=== PATIENT | male | born 1970 | race Caucasian/White ===

== ENCOUNTER 2020-10-02 18:35 | Inpatient (IN) | payer MEDICAID, SELFPAY ==
[~2020-10-02] VITALS: Ht 182.9 cm; Wt 71.7 kg
--- NOTE | 2020-10-02 18:37 | NUR ---
Patient to bed 9 by EMS.
[2020-10-02 18:45] VITALS: BP 101/61
--- NOTE | 2020-10-02 18:50 | NUR ---
RT AT BEDSIDE
--- NOTE | 2020-10-02 19:00 | NUR ---
PT W/ PORTEX 8 TRACH (SECURED) PLACED ON CA 8L 30% AND APPEARS TO BE TOLERATING WELL W/ SPO2 98/99%. WILL CONTINUE TO MONITOR
--- NOTE | 2020-10-02 19:05 | NUR ---
RT AT BEDSIDE EVALUATING PATIENT.
--- NOTE | 2020-10-02 19:06 | NUR ---
REPORT GIVEN TO KYLE CLEVELAND, TRANSFER OF CARE AT THIS TIME.
--- NOTE | 2020-10-02 19:10 | NUR ---
PATIENT 50 Y/O MALE BIBA FROM [facility] [place] FOR ELEVATED WBC 23.8. PATIENT ON TRACH TO T-BAR. RT AT BEDSIDE AND PLACED HIM ON 8L @ 30%. PATIENT NOTED WITH YELLOW SECRETIONS IN T-BAR. PATIENT AXO X 4. ABLE TO SPEAK AND VERBALIZE NEEDS. PATIENT STATES HAS PNA AND IS RECIVING ANTIBIOTICS AT FACILITY. PATIENT NOTED WITH G TUBE IN PLACE. PATIENT STOMA DRY, SKIN INTACT, SMALL AMOUNT OF YELLOW DISCHARGE NOTED AROUND STOMA. PATIENT NOTED WITH EVEN AND UNLABORED RESPIRATIONS. LUNGS SOUNDS NOTED WITH CRACKLES AND RONCHI A/P BILATERAL BASES. PATIENT ON FLOW COORDINATOR, VSS. MEDHX: CHRONIC RESPIRATORY FAILURE, EPILEPSY, DEPRESSION, GERD WITH ESOPHAGITIS, DYSPHAGIA NKA
--- NOTE | 2020-10-02 19:10 | NUR ---
WILDER CASE AT BEDSIDE FOR MEDICAL EVALUATION.
[2020-10-02] MEDS ORDERED: NACL 0.9% 500 ML IV ONE (19:20)
--- NOTE | 2020-10-02 19:27 | NUR ---
LAB AT BEDSIDE.
--- NOTE | 2020-10-02 19:29 | NUR ---
XRAY AT BEDSIDE.
--- NOTE | 2020-10-02 19:43 | NUR ---
RT AT BEDSIDE COLLECTING ABG.
[2020-10-02 19:47] LABS: HEMATOCRIT 31.1 % (36-52); HEMOGLOBIN 10.2 g/dL (12.0-18.0); MEAN CORPUSCULAR HEMOGLOBIN 29 pg (27-31); MEAN CORPUSCULAR HGB CONC 33 g/dL (33-37); MEAN CORPUSCULAR VOLUME 89.2 fL (80-94); PLATELET COUNT (AUTO) 441 K/uL (140-450); RED BLOOD CELL COUNT(AUTO) 3.49 MIL/uL (4.20-6.10); RED CELL DISTRIBUTION WIDTH 13.6 % (11.6-13.7); WHITE BLOOD COUNT (AUTO) 20.6 K/uL (4.8-10.8)
[2020-10-02 19:48] LABS: APPEARANCE,URINE CLEAR (CLEAR); BILIRUBIN,URINE NEGATIVE (NEGATIVE); BLOOD, URINE NEGATIVE (NEGATIVE); COLOR,URINE YELLOW (YELLOW); LEUKOCYTE ESTERASE ,URINE NEGATIVE (NEGATIVE); NITRITE, URINE NEGATIVE (NEGATIVE); PH,URINE 8.5 (5.0-9.0); UGLUCOSE NEGATIVE (NEGATIVE)
[2020-10-02 20:02] LABS: PROTHROMBIN TIME 10.6 secs (10.8-13.4)
[2020-10-02 20:08] LABS: EOSINOPHILS % (MANUAL) 1 % (0-4); LYMPHOCYTES % (MANUAL) 9 % (20-46); METAMYELOCYTES % 1 % (0-0); MONOCYTES % (MANUAL) 4 % (5-12)
--- NOTE | 2020-10-02 20:15 | NUR ---
EKG PERFORMED AT BEDSIDE. EKG READS SINUS RHYTHM @ 96
[2020-10-02 20:18] LABS: CARBON DIOXIDE 33.7 mmol/L (21-32); POTASSIUM 3.7 mmol/L (3.5-5.1)
[2020-10-02] MEDS ORDERED: PRED50TA2 GT (20:18)
[2020-10-02] MEDS ORDERED: CEL250 GT (20:18)
[2020-10-02] MEDS ORDERED: ESCI10TA GT (20:18)
[2020-10-02] MEDS ORDERED: ZINC220C9 GT (20:18)
[2020-10-02] MEDS ORDERED: PANT40EC GT (20:18)
[2020-10-02] MEDS ORDERED: CLON1TAB GT (20:18)
[2020-10-02] MEDS ORDERED: ESLI600T GT (20:18)
[2020-10-02] MEDS ORDERED: [UNRECOGNIZED DRUG - CODE] GT (20:18)
[2020-10-02] MEDS ORDERED: ALBU2.5V IH (20:18)
[2020-10-02] MEDS ORDERED: [UNRECOGNIZED DRUG - CODE] GT (20:18)
[2020-10-02] MEDS ORDERED: DOCU-299 GT (20:18)
[2020-10-02] MEDS ORDERED: ASCO500T95 GT (20:18)
[2020-10-02] MEDS ORDERED: BRIV100T GT (20:18)
[2020-10-02 20:19] LABS: ALBUMIN 2.5 g/dL (3.4-5.0); CREATININE 0.6 mg/dL (0.6-1.3); TOTAL BILIRUBIN 0.2 mg/dL (0.0-1.0)
[2020-10-02] MEDS ORDERED: PIPERACILLIN/TAZOBACTAM 3.375 GM in DEXTROSE 5% 50 ML IV ONE (20:25)
[2020-10-02] MEDS ORDERED: PIPERACILLIN/TAZOBACTAM 3.375 GM VIAL IV ONE (20:41)
--- NOTE | 2020-10-02 21:10 | NUR ---
PATIENT RESPIRATIONS ARE EVEN AND UNLABORED, SKIN WARM AND DRY TO TOUCH. PATIENT ALERT AND RESPONSIVE AND ABLE TO MAKE NEEDS KNOWN. PATIENT DENIES PAIN AT THIS TIME. SHANONT REMAINS ON CARDIC MONITOR. VSS. PATIENT SECRETIONS SUCTIONED AND 30ML OF YELLOW, THICK SECRETIONS NOTED PATIENT. TOLERATED WELL.
--- NOTE | 2020-10-02 21:35 | NUR ---
PER LAB CISCO GEIGER INVALID. WILDER CASE MADE AWARE. NEW ORDER FOR NOVEL PCR, ORDER CARRIED OUT.
--- NOTE | 2020-10-02 22:01 | NUR ---
PER LUCIA, COVID IS NEGATIVE AND FLU IS NEGATIVE. RN MADE AWARE.
[2020-10-02] MEDS ORDERED: POTASSIUM CHLORIDE 10 MEQ TABER PO PRN (22:25)
[2020-10-02] MEDS ORDERED: DOCUSATE SODIUM 100 MG GELCAP PO PRN (22:25)
[2020-10-02] MEDS ORDERED: ZOLPIDEM 5 MG TAB PO PRN (22:25)
[2020-10-02] MEDS ORDERED: ALBUTEROL SULFATE/IPRATROPIU 3 ML SOL IH PRN (22:25)
[2020-10-02] MEDS ORDERED: ONDANSETRON 4 MG/2 ML VIAL IM/IVP PRN (22:25)
--- NOTE | 2020-10-02 22:48 | NUR ---
PT TOLERATING CA 8L 30% WELL. CA WATER 3/4 FULL WILL CONTINUE TO MONITOR
[2020-10-02] MEDS: NACL 0.9% 1,000 ML IV SCH (23:00)
[2020-10-02 23:10] LABS: CHOL/HDL RATIO 4.7 (1-4.5); FREE T4 (FREE THYROXINE) 1.21 ng/dL (0.76-1.46); MAGNESIUM 1.9 mg/dL (1.8-2.4); PHOSPHORUS 2.5 mg/dL (2.5-4.9); THYROID STIMULATING HORMONE 0.73 uIU/mL (0.34-3.74)
[2020-10-03] MEDS: ALBUTEROL SULFATE/IPRATROPIU 3 ML SOL IH SCH ×4 (01:00→20:10)
--- NOTE | 2020-10-03 01:13 | NUR ---
Sx MOD AMT THICK YELLOW/CREAMY SECR. Addendum: 10/03/20 at 0115 by [facility] PT REFUSED Tx (JOZEF COX) AT THIS TIME AND WOULD LIKE TO REST. WILL CONTINUE TO MONITOR
[2020-10-03] MEDS: PIPERACILLIN/TAZOBACTAM 3.375 GM in DEXTROSE 5% 50 ML IV SCH ×5 (02:12→23:00)
--- NOTE | 2020-10-03 03:12 | NUR ---
Patient appears to be resting comfortably in bed. Vital Signs within normal limits. Respirations even and unlabored. Patient remains on shelter monitor. Patient suctioned as tolerated. Secretions are thin and yellow in color. 10 ml of secretions suctioned from patient. Patient tolerated well.
[2020-10-03] MEDS ORDERED: PIPERACILLIN/TAZOBACTAM 3.375 GM VIAL IV ONE (03:17)
--- NOTE | 2020-10-03 03:58 | NUR ---
CA WATER 1/4 FULL, PLACED NEW WATER AT BEDSIDE WILL CONTINUWE TO MONITOR
--- NOTE | 2020-10-03 04:31 | NUR ---
G-TUBE STOMA CLEANED AND REDRESSED. STOMA IS PINK, MOIST, AND INTACT.
--- NOTE | 2020-10-03 04:34 | NUR ---
Sx THICK YELLOW/CREAMY SECR AND TRACH CARE COMPLETED. Addendum: 10/03/20 at 0436 by CHEIKH PT WAS REPOSITIONED IN BED W/ RN
--- NOTE | 2020-10-03 05:00 | NUR ---
Patient appears to be resting comfortably in bed. Vital Signs within normal limits. Respirations even and unlabored.
[2020-10-03 05:54] LABS: BASOPHILS % (AUTO) 0.2 % (0.0-2.0); EOSINOPHILS # (AUTO) 0.5 K/uL (0-0.4); EOSINOPHILS % (AUTO) 3.7 % (0.0-4.0); HEMATOCRIT 30.4 % (36-52); HEMOGLOBIN 9.8 g/dL (12.0-18.0); LYMPHOCYTES # (AUTO) 1.1 K/uL (2.0-11.5); LYMPHOCYTES % (AUTO) 8.6 % (20.5-51.1); MEAN CORPUSCULAR HEMOGLOBIN 29 pg (27-31); MEAN CORPUSCULAR HGB CONC 32 g/dL (33-37); MONOCYTES % (AUTO) 7.7 % (1.7-9.3); NEUTROPHILS # (AUTO) 10.3 K/uL (1.8-7.7); NEUTROPHILS % (AUTO) 79.8 % (42.2-75.2); PLATELET COUNT (AUTO) 417 K/uL (140-450); RED BLOOD CELL COUNT(AUTO) 3.38 MIL/uL (4.20-6.10); RED CELL DISTRIBUTION WIDTH 13.7 % (11.6-13.7); WHITE BLOOD COUNT (AUTO) 12.9 K/uL (4.8-10.8)
[2020-10-03 06:01] LABS: ANION GAP 10.1 (8-16); CARBON DIOXIDE 30.3 mmol/L (21-32); CREATININE 0.6 mg/dL (0.6-1.3); POTASSIUM 3.4 mmol/L (3.5-5.1)
--- NOTE | 2020-10-03 06:50 | NUR ---
RT AT BEDSIDE EVALUATING PATIENT.
--- NOTE | 2020-10-03 07:15 | NUR ---
REPORT GIVEN TO BETH CLEVELAND. PATIENT SUCTIONED AND TOELRATED WELL. PATIENT REMAINS A&O X 4. PATIENT REMAINS ON CARDIAC MONTIOR. VSS.
--- NOTE | 2020-10-03 07:16 | NUR ---
Received report from MEGHA Rico. Transfer of care at this time.
--- NOTE | 2020-10-03 07:56 | NUR ---
RECEIVED REPORT FROM ER. PATIENT PENDING TRANSFER TO UNIT. CC: INCREASED WBC; DX: PNA; HX: CHRONIC RESPIRATORY FAILURE, EPILEPSY, DEPRESSION, GERD, DYSPHAGIA; NKA ALLERGIES, FULL CODE. TRACH TO T COLLAR AT 8L/30%; IV SITE RW 22G, SKIN INTACT. LAST V/S: BP: 95/48; RR 28; PULSE 89; TEMP 98.5; SPO2 100%. WILL WAIT FOR PATIENT TO ARRIVE ON UNIT.
--- NOTE | 2020-10-03 07:59 | NUR ---
Gave report to MEGHA Rizvi. Transfer of care at this time.
[2020-10-03 08:11] VITALS: BP 95/48
--- NOTE | 2020-10-03 08:15 | NUR ---
Patient will be admitted to care of DR. SMITH. Admited to TELE. Will go to room 122B. Belongings list completed. Report to MEGHA WOODWARD.
--- NOTE | 2020-10-03 08:15 | NUR ---
PT TX TO TELE, NO EVENTS OR DESATS NOTED, RETURNED TO 6L;/28% COOL AEROSOL TRACH MASK.
[2020-10-03] MEDS: PANTOPRAZOLE 40 MG TABEC PO SCH (09:45)
[2020-10-03] MEDS: NACL 0.9% 1,000 ML IV SCH ×2 (11:06→22:59)
[2020-10-03 12:00] VITALS: BP 99/56
--- NOTE | 2020-10-03 12:30 | NUR ---
PATIENT HAS BEEN SCREENED AND CATEGORIZED HIGH NUTRITION RISK. PATIENT WILL BE SEEN WITHIN 1-2 DAYS OF ADMISSION. 10/03/20-10/04/20 [facility] REFERRAL FOR TUBE FEEDING RECEIVED. ERROL SHAH RD
--- NOTE | 2020-10-03 12:52 | NUR ---
ADMINISTERED PRESCRIBED MEDS PER MD ORDER. PATIENT TOLERATED WELL. MEDICATION EDUCATION REINFORCEMENT NEEDED. SAFETY MEASURES IN PLACE. WILL CONTINUE TO MONITOR.
--- NOTE | 2020-10-03 13:54 | NUR ---
LATE ENTRY -- ZOSYN COMPLETED AT 2150 AND NS INFUSION COMPLETED AT 2150 10/02/20.
--- NOTE | 2020-10-03 14:41 | NUR ---
10/03/20 RD INITIAL ASSESSMENT COMPLETED PLEASE REFER TO NUTRITION ASSESSMENT UNDER CARE ACTIVITY FOR ESTIMATED NUTRITIONAL NEEDS. 1. RECOMMEND TUBE FEEDING WITH VITAL AF 1.2 @ 65 ML/HR AND FREE WATER FLUSH OF 100 ML Q4H -THIS WILL PROVIDE 1560 ML OF VOLUME, 1872 KCAL AND 117 GM OF PROTEIN, MEETING 100% OF KCAL AND PROTEIN NEEDS 2. RD TO FOLLOW-UP 2-3 DAYS, HIGH RISK ERROL SHAH, RD
--- NOTE | 2020-10-03 14:58 | NUR ---
PATIENT ROUNDING PERFORMED. PATIENT IN BED WATCHING TV. NO SIGNS OF DISTRESS/DISCOMFORT NOTED. PATIENT DENIES PAIN. SAFETY MEASURES IN PLACE. WILL CONTINUE TO MONITOR.
[2020-10-03 16:00] VITALS: BP 95/72
--- NOTE | 2020-10-03 19:15 | NUR ---
RECEIVED BEDSIDE REPORT FROM DAY SHIFT NURSE FOR CONTINUITY OF CARE. PT IS AWAKE AND ALERT. NODDING HEAD APPROPRIATELY TO QUESTIONS. PT IS TRACH TO T BAR ON 6L O2 AT 28% fio2. ON TELE MONITORING. G TUBE IN PLACE WITH NO DIET ORDER OR FEEDING INFUSING. URINAL AT BEDSIDE WITHIN REACH. SKIN IS WARM, DRY, AND INTACT. IV IS IN THE RIGHT WRIST 22 GAUGE RUNNING NS AT 80 ML PER HOUR PER ORDER. PT IS STABLE AT THIS TIME. PLAN OF CARE DISCUSSED. PCR COVID PENDING. DROPLET PRECAUTIONS IN PLACE. FALL PRECAUTIONS IN PLACE.
--- NOTE | 2020-10-03 19:22 | NUR ---
BEDSIDE REPORT PROVIDED TO NIGHTSHIFT NURSE FOR CONTINUITY OF CARE
--- NOTE | 2020-10-03 19:39 | NUR ---
DR. SMITH RESPONDED TO DAY SHIFT NURSE ABOUT REPORTED POTASSIUM LEVEL 3.4. DR. SMITH ORDERED KDUR [address] SMITH THAT KDUR CANNOT BE CRUSHED REPORTED BY JULIANA (PHARMACIST) AT [facility]. ASKED IF HE WOULD LIKE TO PLACE ORDER FOR 40 MEQ ELIXIR VIA GT. DR. SMITH AGREED TO ORDER AND ASKED FOR IT TO BE PLACED A PRN DAILY ORDER FOR POTASSIUM BELOW 3.5. ALSO INFORMED HIM THAT THERE WAS NO DIET ORDER AND THE PT HAS G TUBE IN PLACE. TOLD HIM THAT THE RECOMMENDATION OF THE RUG INSPECTOR WAS VITAL AF 1.2 AT 65 ML/HR AND WATER FLUSHED [address] SMITH RESPONDED TO START THE FEEDING. WILL FOLLOW THROUGH WITH ORDERS SOON POSSIBLE.
[2020-10-03 20:00] VITALS: BP 117/65
[2020-10-03] MEDS: POTASSIUM CHLORIDE 20% 40 MEQ/15 ML UDC GT PRN (21:26)
--- NOTE | 2020-10-03 21:27 | NUR ---
POTASSIUM CHLORIDE 40 MEQ GIVEN VIA G TUBE FOR POTASSIUM LEVEL OF 3.4 ORDERED PRN. NO RESIDUAL IN G TUBE. FLUSHING WELL. PT'S BREATHING IS UNLABORED. NO DISTRESS NOTED AT THIS TIME. TRACH TO T BAR WITH 6L O2. WILL CONTINUE TO MONITOR.
--- NOTE | 2020-10-03 21:35 | NUR ---
CALLED MASTER FISHER, AZEB, TO ASK FOR VITAL AF 1.2 G TUBE FEEDING. SHE SAID SHE WILL BRING IT TO THE UNIT SHORTLY.
--- NOTE | 2020-10-03 22:04 | NUR ---
G TUBE FEEDING STARTED. VITAL AF 1.2 STARTED AT 30 ML/HR AND WILL INCREASE TO 65 ML/HR TOLERATING FEEDING. WATER FLUSHES 100 ML Q4H. G TUBE RESIDUAL WAS LESS THAN 5 ML. EDUCATION WAS PROVIDED AND PT VERBALIZED UNDERSTANDING. ORAL CARE PROVIDED AND ORAL SUCTIONING WELL. PT WAS SUCTIONED THROUGH TRACH WITH CREAMY WHITE SECRETIONS EXPELLED. PT TOLERATED IT WELL. NO RESPIRATORY DISTRESS NOTED.
[2020-10-04] VITALS: BP 114/67
--- NOTE | 2020-10-04 | NUR ---
PT WAS GIVEN SANDWICH REQUESTED AND JUICE. PT IS SITTING AT EDGE OF THE BED, EATING FOOD. NO RESPIRATORY DISTRESS NOTED. PT WAS ORIENTED TO THE ROOM, LIGHTS, AND TV CONTROLS. ALL QUESTIONS ANSWERED ABOUT CARE OF PT. PT IS BACK TO BED. BED ALARM ON. Addendum: 10/04/20 at 0029 by Stefani Mondragon RN WRONG PT. THIS NOTE WAS FOR A DIFFERENT PT.
--- NOTE | 2020-10-04 00:05 | NUR ---
PT WAS SUCTIONED THROUGH TRACH AND CREAMY, WHITE SECRETIONS WERE EXPELLED. SMALL IN AMOUNT. O2 SAT IS 100%. PT NODDED THAT HE WAS OKAY AT THIS TIME. CALL LIGHT WAS PLACED WITHIN REACH. PT IS WATCHING TV, CALMLY.
[2020-10-04] MEDS: ALBUTEROL SULFATE/IPRATROPIU 3 ML SOL IH SCH ×4 (01:05→19:42)
--- NOTE | 2020-10-04 02:03 | NUR ---
ROUNDED ON PT. PT IS SLEEPING IN SEMI FOWLERS POSITION. G TUBE FEEDING IS INFUSING. RESIDUAL IS LESS THAN 5 ML. FEEDING INCREASED TO 50 ML/HR. IV FLUIDS ARE INFUSING. CALL LIGHT WITHIN REACH. WILL CONTINUE TO MONITOR.
[2020-10-04 04:00] VITALS: BP 107/66
--- NOTE | 2020-10-04 05:00 | NUR ---
PT WAS SUCTIONED THROUGH TRACH AND ORALLY. CREAMY, WHITE SECRETIONS WERE EXPELLED. PT TOLERATED THIS WELL. O2 SAT IS 100%. NO RESPIRATORY DISTRESS NOTED. G TUBE FEEDING INFUSING ORDERED. G TUBE RESIDUAL IS LESS THAN 5 ML.
[2020-10-04] MEDS: PIPERACILLIN/TAZOBACTAM 3.375 GM in DEXTROSE 5% 50 ML IV SCH ×4 (05:31→23:03)
[2020-10-04 06:05] LABS: BASOPHILS % (AUTO) 0.2 % (0.0-2.0); EOSINOPHILS # (AUTO) 0.7 K/uL (0-0.4); EOSINOPHILS % (AUTO) 7.2 % (0.0-4.0); HEMATOCRIT 30.6 % (36-52); HEMOGLOBIN 9.8 g/dL (12.0-18.0); LYMPHOCYTES % (AUTO) 10.3 % (20.5-51.1); MEAN CORPUSCULAR HEMOGLOBIN 29 pg (27-31); MEAN CORPUSCULAR HGB CONC 32 g/dL (33-37); MEAN CORPUSCULAR VOLUME 90.1 fL (80-94); MONOCYTES % (AUTO) 10.1 % (1.7-9.3); NEUTROPHILS # (AUTO) 6.8 K/uL (1.8-7.7); NEUTROPHILS % (AUTO) 72.2 % (42.2-75.2); PLATELET COUNT (AUTO) 454 K/uL (140-450); RED BLOOD CELL COUNT(AUTO) 3.39 MIL/uL (4.20-6.10); RED CELL DISTRIBUTION WIDTH 13.6 % (11.6-13.7); WHITE BLOOD COUNT (AUTO) 9.5 K/uL (4.8-10.8)
--- NOTE | 2020-10-04 06:45 | NUR ---
PT PULLED OUT IV WHILE SLEEPING. NEW IV WAS INSERTED ON THE RIGHT HAND 24 GAUGE ON FIRST ATTEMPT. FLUSHING AND PATENT. PT TOLERATED PROCEDURE WELL.
[2020-10-04 07:06] LABS: ANION GAP 10.3 (8-16); CARBON DIOXIDE 28.5 mmol/L (21-32); CREATININE 0.6 mg/dL (0.6-1.3); POTASSIUM 3.8 mmol/L (3.5-5.1)
--- NOTE | 2020-10-04 07:25 | NUR ---
ENDORSED PT TO DAY SHIFT NURSE FOR CONTINUITY OF CARE. PT IS STABLE. PLAN OF CARE DISCUSSED.
--- NOTE | 2020-10-04 07:30 | NUR ---
RECEIVED BEDSIDE ENDORSEMENT FROM NIGHTSSDFT NURSE FOR CONTINUITY OF CARE.
[2020-10-04 08:00] VITALS: BP 115/78
[2020-10-04 08:07] LABS: T4 (THYROXINE) 6.9 ug/dL (4.5-12.0)
[2020-10-04] MEDS: PANTOPRAZOLE 40 MG TABEC PO SCH (08:52)
--- NOTE | 2020-10-04 09:03 | NUR ---
ADMINISTERED PRESCRIBED MEDS PER MD ORDER. PATIENT TOLERATED WELL. MEDICATION EDUCATION PROVIDED. PATIENT VERALIZED UNDERSTANDING. PATIENT DENIES PAIN/SOB. SHOWS NO SIGNS OF DISTRESS OR DISCOMFORT. TRACH CARE PROVIDED. SAFETY MEASURES IN PLACE. WILL CONTINUE TO MONITOR.
[2020-10-04] MEDS: NACL 0.9% 1,000 ML IV SCH ×2 (11:55→23:22)
[2020-10-04 12:00] VITALS: BP 114/68
--- NOTE | 2020-10-04 13:31 | NUR ---
ADMINISTERED PRESCRIBED MEDS PER MD ORDER. PATIENT TOLERATED WELL. MEDICATION EDUCATION PROVIDED. PATIENT VERBALIZED UNDERSTANDING. RT AT BEDSIDE PERFORMING TRACH/RESPIRATORY CARE. SAFETY MEASURES IN PLACE. WILL CONTINUE TO MONITOR.
[2020-10-04 16:00] VITALS: BP 124/76
--- NOTE | 2020-10-04 18:50 | NUR ---
TRACH CARE PROVIDED TO PATIENT. PATIENT DENIES PAIN. NO SIGNS OF DISTRESS OR DISCOMFORT. SAFETY MEASURES IN PLACE. WILL CONTINUE TO MONITOR.
--- NOTE | 2020-10-04 19:08 | NUR ---
BEDSIDE ENDORSEMENT PROVIDED TO NIGHTSHIFT NURSE FOR CONTINUITY OF CARE.
--- NOTE | 2020-10-04 19:10 | NUR ---
PATIENT ENDORSED BY DAY SHIFT FOR CONTINUITY OF CARE. POC DISCUSSED. PATIENT IN STABLE CONDITION. PATIENT ON DROPLET PRECAUTIONS PENDING PCR. PT DIAGNOSIS IS PNEUMONIA. PATIENT IS ALERT AND ORIENTED BUT DIFFICULTY TO TALK. PATIENT IS TRACH TO T BAR ON 6 L. SUCTIONED DUE TO INCREASED SECRETIONS. PATIENT ON TELE SHOWING SINUS TACH. PATIENT HAS A G TUBE RUNNING 65 ML/HR AND WATER FLUSHES OF 100ML/HR Q4 HRS. PATIENTS LAST BM WAS TODAY, 10/04/20. SKIN IS INTACT WITH A RIGHT HAND IV 22GAUGE RUNNING NS @ 80 ML/HR. ALL PRECAUTIONS IN PLACE. CALL LIGHT WITHIN REACH. WILL CONTINUE TO MONITOR.
--- NOTE | 2020-10-04 19:53 | NUR ---
RT AT BEDSIDE.
[2020-10-04 20:00] VITALS: BP 129/86
--- NOTE | 2020-10-04 20:38 | NUR ---
SUCTIONED PATIENT, PATIENT IS NOTED TO HAVE INTERMITTENT COUGHING WELL W/ A LOT OF SPUTUM COMING OUT OF HIS MOUTH, WHITISH THICK SPUTUM NOTED. KEPT COMFORTABLE, CALL LIGHT WITHIN REACH.
--- NOTE | 2020-10-04 21:35 | NUR ---
PT SUCTIONED, INCREASED SPUTUM AND COUGHING NOTED. PATIENT KEPT COMFORTABLE AND POSITIONED IN A HIGH FOWLERS POSITION TO PREVENT ASPIRATION DURING COUGHING. SUCTION CHAMBER CHANGED DUE TO INCREASED SECRETION PRODUCTION. GTUBE CHECKED FOR RESIDUAL. FEEDING TUBE AND VITAL AF CHANGED AND RESTARTED AT 65 ML/HR. PATIENT COMFORTABLE. ALL PRECAUTIONS ARE IN PLACE. CALL LIGHT WITHIN REACH. WILL CONTINUE TO MONITOR.
--- NOTE | 2020-10-04 22:21 | NUR ---
PATIENT SUCTIONED DUE TO INCREASED COUGHING AND SPUTUM PRODUCTION THAT IS WHITISH. PATIENT TOLERATED PROCEDURE AND SHOWS NO SIGNS OF ACUTE DISTRESS. PATIENT NODS HE IS COMFORTABLE AND WOULD LIKE TO REST NOW. TV TURNED OFF, LIGHTS DIMMED. CALL LIGHT WITHIN REACH. WILL CONTINUE TO MONITOR.
--- NOTE | 2020-10-04 22:34 | NUR ---
PATIENT SUCTIONED DUE TO INCREASED SPUTUM SECRETION PRODUCTION AND INCREASED COUGHING. PATIENT TOLERATED PROCEDURE AND NODDED THAT HIS NEEDS ARE MET. PATIENT IS COMFORTABLE AND NODDED HE DOESN'T NEED TO BE SUCTIONED AGAIN. ALL PRECAUTIONS ARE IN PLACE AND CALL LIGHT IS WITHIN REACH. WILL CONTINUE TO MONITOR.
[2020-10-04] MEDS: guaiFENesin DM 200/20 MG-10 ML 10 ML UDC PO PRN (23:03)
--- NOTE | 2020-10-04 23:07 | NUR ---
RT CALLED DUE TO THE INCREASED COUGH AND PRODUCTION.
--- NOTE | 2020-10-04 23:16 | NUR ---
PRN COUGH MEDICATION ADMINISTERED VIA GTUBE. PATIENT EDUCATION PROVIDED PATIENT NODDED UNDERSTANDING. PATIENT TOLERATED ADMINISTRATION. SCHEDULED ABX ADMINISTERED. SUCTION PROVIDED DUE TO INCREASE SECRETION. ALL PRECAUTIONS IN PLACE. CALL LIGHT WITHIN REACH. WILL CONTINUE TO MONITOR.
[2020-10-04] MEDS: ACETAMINOPHEN 325 MG TAB PO PRN (23:47)
[2020-10-05] VITALS: BP 128/66
[2020-10-05] MEDS: ALBUTEROL SULFATE/IPRATROPIU 3 ML SOL IH SCH ×3 (01:00→12:19)
--- NOTE | 2020-10-05 01:20 | NUR ---
PRN ANTIPYRETIC ADMINISTERED FOR 100.5 FEVER. EDUCATION PROVIDED, PATIENT NODDED HIS HEAD UNDERSTANDING. SAFETY MEASURES IN PLACE, WILL CONTINUE TO MONITOR.
--- NOTE | 2020-10-05 02:11 | NUR ---
DR. SMITH NOTIFIED OF PATIENTS ELEVATED HEART RATE AROUND [phone]. BP WNL. DR. SMITH ORDERED CONSULT WITH JACQUELIN ISRAEL. JAVA J2EE ARCHITECT WAS PAGED. WAITING FOR CALL BACK FOR NEW ORDERS. WILL CONTINUE TO MONITOR.
--- NOTE | 2020-10-05 02:14 | NUR ---
DR. JACQUELIN ISRAEL PAGED, AWAITING CALL BACK, PATIENT IS CALM, DENIES PAIN. NO DISTRESS NOTED, SUCTIONED W/ MINIMAL SECRETION, TEMP 99.7. WILL CONTINUE TO MONITOR, CALL LIGHT WITHIN REACH.
--- NOTE | 2020-10-05 03:34 | NUR ---
PATIENT HAD A BM AND CHANGED, PATIENT REPORTS ALL NEEDS MET. NO INDICATION FOR SUCTION AT THIS TIME. RESPIRATIONS EVEN, UNLABORED AND NO SIGNS OF ACUTE DISTRESS. PATIENTS HEART RATE 126. ALL PRECAUTIONS IN PLACE, BED IN LOWEST POSITION. CALL LIGHT WITH IN REACH. WILL CONTINUE TO MONITOR.
[2020-10-05 04:00] VITALS: BP 123/75
--- NOTE | 2020-10-05 05:30 | NUR ---
ROUNDED ON PATIENT. PATIENT IS RESTING COMFORTABLY IN BED, WATHCING TV. PATIENT NODS NO THAT HE DOES NOT NEED TO BE SUCTIONED, AND YES THAT HIS NEEDS ARE MET. PATIENT CHEST IS RISING AND FALLING EVEN AND UNLABORED SHOWING NO SIGNS OF ACUTE DISTRESS. PATIENT IN STABLE CONDITION. SAFETY MEASURES IN PLACE, CALL LIGHT WITHIN REACH. WILL CONTINUE TO MONITOR.
[2020-10-05 05:34] LABS: ANION GAP 13.2 (8-16); CARBON DIOXIDE 28.4 mmol/L (21-32); CREATININE 0.6 mg/dL (0.6-1.3); POTASSIUM 3.6 mmol/L (3.5-5.1)
[2020-10-05] MEDS: PIPERACILLIN/TAZOBACTAM 3.375 GM in DEXTROSE 5% 50 ML IV SCH ×4 (05:41→23:44)
--- NOTE | 2020-10-05 06:33 | NUR ---
PATIENTS RIGHT HAND IV CATHETER FELL OUT, CATHETER INTACT. NEW IV PLACE IN LEFT WRIST, 24 GAUGE. PATIENT TOLERATED PROCEDURE. PATIENT IN STABLE CONDITION. SAFETY MEASURES IN PLACE, CALL LIGHT WITHIN REACH. WILL CONTINUE TO MONITOR.
--- NOTE | 2020-10-05 06:34 | NUR ---
PATIENTS HR AT 110. PATIENT STABLE AND SHOWS NO SIGNS OF ACUTE DISTRESS. CALL LIGHT WITHIN REACH, WITH SAFETY MEASURES IN PLACE. WILL CONTINUE TO MONITOR.
[2020-10-05 06:35] LABS: HEMATOCRIT 34.1 % (36-52); HEMOGLOBIN 10.8 g/dL (12.0-18.0); MEAN CORPUSCULAR HEMOGLOBIN 29 pg (27-31); MEAN CORPUSCULAR HGB CONC 32 g/dL (33-37); MEAN CORPUSCULAR VOLUME 90.1 fL (80-94); PLATELET COUNT (AUTO) 516 K/uL (140-450); RED BLOOD CELL COUNT(AUTO) 3.79 MIL/uL (4.20-6.10); RED CELL DISTRIBUTION WIDTH 13.9 % (11.6-13.7); WHITE BLOOD COUNT (AUTO) 24.7 K/uL (4.8-10.8)
[2020-10-05 07:30] LABS: EOSINOPHILS % (MANUAL) 1 % (0-4); LYMPHOCYTES % (MANUAL) 4 % (20-46); MONOCYTES % (MANUAL) 3 % (5-12)
--- NOTE | 2020-10-05 07:36 | NUR ---
PATIENT STABLE, NO DISTRESS NO SOB, ALL NEEDS ATTENDED, KEPT COMFORTABLE, BEDSIDE ENDORSEMENT GIVEN TO AM SHIFT RN FOR CONTINUITY OF CARE.
--- NOTE | 2020-10-05 07:37 | NUR ---
RECEIVED PATIENT REPORT FROM MANAGER PACU NURSE FOR CONTINUITY OF CARE. PATIENT AOX4, ABLE TO MAKE NEEDS KNOWN. RESPIRATIONS EVEN AND UNLABORED. TRACH TO T BAR WITH 6 L OF O2 SATING AT 100%. NO S/S OF RESPIRATORY DISTRESS NOTED. SKIN IS WARM AND DRY. IV SITE ON LEFT WRIST 24 G. INTACT AND PATENT. HAS A G TUBE RUNNING 65 ML/HR WITH WATER FLUSHES OF 100ML/HR Q4 HRS. PLAN OF CARE DISCUSSED. SAFETY PRECAUTIONS IN PLACE. ALL PRECAUTIONS IN PLACE. CALL LIGHT WITHIN REACH. WILL CONTINUE TO MONITOR.
[2020-10-05 08:00] VITALS: BP 127/75
[2020-10-05] MEDS: PANTOPRAZOLE 40 MG TABEC PO SCH (08:48)
--- NOTE | 2020-10-05 08:50 | NUR ---
ALL SCHEDULED MEDICATIONS GIVEN. PT IS STABLE. NO DISTRESS NOTED. WILL CONTINUE TO MONITOR.
--- NOTE | 2020-10-05 09:00 | NUR ---
DR. HEARD AT PATIENT'S BEDSIDE.
--- NOTE | 2020-10-05 09:20 | NUR ---
PATIENT REQUESTED TO BE SUCTIONED. PT TOLERATED SUCTION. O2 SATURATION IS AT 100%. NO DISTRESS NOTED. WILL CONTINUE TO MONITOR.
[2020-10-05] MEDS: LEVOFLOXACIN 750 MG/D5W PREMIX 150 ML IV SCH (09:54)
--- NOTE | 2020-10-05 11:40 | NUR ---
PATIENT REQUESTED TO BE SUCTIONED. PT TOLERATED SUCTION. O2 SATURATION IS AT 100%. NO DISTRESS NOTED. WILL CONTINUE TO MONITOR.
[2020-10-05 12:00] VITALS: BP 143/72
--- NOTE | 2020-10-05 12:00 | NUR ---
DR. BATISTA AT PATIENT'S BEDSIDE.
--- NOTE | 2020-10-05 12:05 | NUR ---
DISCHARGE PLANNING Received call from Minna at [facility], updated on pt status, no dc today. States if pt has order to dc during the weekend to call her at ph [phone]. States to fax her updated pt info, fax [phone]. Informed dc associate financial planner. Pt having fever 100.5, HR 111-143. New order for bcx, sputum cx, ID consult, IV levaquin, cardio consult for HR. Today WBC 24.7, bands 20. PCR results are neg. Addendum: 10/05/20 at 1248 by Qi Alfredo CM DC LAY OUT CARPENTER: FAXED UPDATED CLINICALS TO [facility].
[2020-10-05] MEDS: NACL 0.9% 1,000 ML IV SCH ×2 (12:40→23:47)
--- NOTE | 2020-10-05 13:59 | NUR ---
Rapid response was called on patient due to excessive secretions, coughing, and distress. Patient is coughing up excessive secretions and is agitated due to coughing fits. Rn stated that he is trying to get some cough medicine. RT suggested something to suggest to MD to decrease the amount of secretions due to excessive coughing. Patient is upset due to airway irritation. Patient did not desat during rapid or afterward.
--- NOTE | 2020-10-05 14:00 | NUR ---
RAPID RESPONSE WAS CALLED. PATIENT HAD EXCESSIVE SECRETIONS AND SHOWING SIGNS OF SOB AND TACHYAPNEA. SUCTIONED THE SECRETION OUT TO CLEAR AIRWAY. O2 SATURATION AT 98%. PATIENT WAS SLOWLY CALMING DOWN. BREATHING PATTERN IS RETURNING BACK TO NORMAL RHYTHM. PT IS STABLE NOW. CANCELLED RAPID RESPONSE. WILL CONTINUE TO MONITOR.
[2020-10-05] MEDS: guaiFENesin DM 200/20 MG-10 ML 10 ML UDC PO PRN (14:27)
--- NOTE | 2020-10-05 14:41 | NUR ---
10/05/20 RD FOLLOW UP COMPLETED PLEASE REFER TO NUTRITION ASSESSMENT UNDER CARE ACTIVITY FOR ESTIMATED NUTRITIONAL NEEDS. 1. CONTINUED VITAL AF 1.2 @ 65 ML/HR AND FREE WATER FLUSH OF 100 ML Q4H -THIS WILL PROVIDE 1560 ML OF VOLUME, 1872 KCAL AND 117 GM OF PROTEIN, MEETING 100% OF KCAL AND PROTEIN NEEDS 2. RD TO FOLLOW-UP 2-3 DAYS, HIGH RISK ERROL SHAH, RD
--- NOTE | 2020-10-05 15:50 | NUR ---
PATIENT REQUESTED TO BE SUCTIONED. PT TOLERATED SUCTION. O2 SATURATION IS AT 100%. NO DISTRESS NOTED. WILL CONTINUE TO MONITOR.
[2020-10-05 16:00] VITALS: BP 133/70
[2020-10-05] MEDS: GLYCOPYRROLATE 1 MG TAB PO SCH (17:05)
--- NOTE | 2020-10-05 17:32 | NUR ---
NOTIFIED DR. SMITH AND DR. HEARD REGARDING PATIENT'S ELEVATED HEART RATE. MD ARE AWARE AND RECEIVED NEW ORDERS FROM DR. SMITH BUT NO ORDERS WERE RECEIVED FROM DR. HEARD. DR. HEARD STATED THAT THERE IS NOTHING TO DO AT THIS TIME. PATIENT'S BODY IS REACTING TO THE PNA.
[2020-10-05] MEDS: LEVALBUTEROL 1.25 MG/0.5 ML NEBU INH PRN (17:56)
--- NOTE | 2020-10-05 18:00 | NUR ---
REPLACED OLD FEEDING WITH NEW FEEDING. NO RESIDUALS WERE NOTED. PT TOLERATING FEEDING.
--- NOTE | 2020-10-05 18:10 | NUR ---
RT AT PATIENT'S BEDSIDE ADMINISTRATING BREATHING TREATMENT
--- NOTE | 2020-10-05 19:25 | NUR ---
ENDORSED TO SPOOLING SUPERVISOR NURSE FOR CONTINUITY OF CARE. PT IS STABLE.
--- NOTE | 2020-10-05 19:26 | NUR ---
RECEIVED BEDSIDE ENDORSEMENT FROM AM SHIFT RN. PATIENT IS AAOX3-4, ON TRACH TO T PIECE, 6 L 28%, ON G TUBE FEEDING VITAL AF 1.2 AT 65ML/HR. TOLERATED WELL W/ 0 RESIDUAL, HOB ELEVATED, DENIES PAIN, SAFETY MEASURES IN PLACE, PLAN OF CARE DISCUSSED, PER ENDORSED, MD IS AWARE OF ELEVATED HR, WILL CONTINUE TO MONITOR, CALL LIGHT WITHIN REACH.
[2020-10-05 20:00] VITALS: BP 112/64
--- NOTE | 2020-10-05 21:00 | NUR ---
PERINEAL CARE RENDERED, KEPT CLEAN, DRY AND COMFORTABLE, CALL LIGHT WITHIN REACH.
[2020-10-05] MEDS: ACETAMINOPHEN 325 MG TAB PO PRN (21:31)
[2020-10-06] VITALS: BP 110/59
--- NOTE | 2020-10-06 | NUR ---
ASLEEP, AROUSABLE TO VERBAL, V/S TAKEN, NO DISTRESS, CALL LIGHT WITHIN REACH.
--- NOTE | 2020-10-06 02:42 | NUR ---
RT SUCTIONED THE PATIENT.
[2020-10-06 04:00] VITALS: BP 113/66
--- NOTE | 2020-10-06 04:00 | NUR ---
ASLEEP, NOTED CHEST RISE, NO DISTRESS, CALL LIGHT WITHIN REACH.
[2020-10-06] MEDS: PIPERACILLIN/TAZOBACTAM 3.375 GM in DEXTROSE 5% 50 ML IV SCH ×3 (05:33→18:34)
[2020-10-06] MEDS: guaiFENesin DM 200/20 MG-10 ML 10 ML UDC PO PRN (05:34)
--- NOTE | 2020-10-06 06:15 | NUR ---
RT called by RN regarding patients trach. Trach noted to be out, apparently got wrapped up into tele cords, and was dislodged. Trach reinserted into patients stoma, patient was able to clear secretions, and ventilate through trach. RT Viet informed RN of dislodgement and reinsertion of trach. Patient appeared calmer and saturations were good on monitor.
[2020-10-06] MEDS: GLYCOPYRROLATE 1 MG TAB PO SCH ×2 (06:32→16:41)
[2020-10-06] MEDS: LEVALBUTEROL 1.25 MG/0.5 ML NEBU INH PRN ×2 (06:55→11:10)
[2020-10-06 07:17] LABS: EOSINOPHILS # (AUTO) 0.1 K/uL (0-0.4); EOSINOPHILS % (AUTO) 0.4 % (0.0-4.0); HEMATOCRIT 32.1 % (36-52); HEMOGLOBIN 10.2 g/dL (12.0-18.0); LYMPHOCYTES # (AUTO) 1.4 K/uL (2.0-11.5); MEAN CORPUSCULAR HEMOGLOBIN 28 pg (27-31); MEAN CORPUSCULAR HGB CONC 32 g/dL (33-37); MONOCYTES # (AUTO) 1.4 K/uL (0.8-1.0); MONOCYTES % (AUTO) 5.1 % (1.7-9.3); NEUTROPHILS # (AUTO) 25.6 K/uL (1.8-7.7); NEUTROPHILS % (AUTO) 89.5 % (42.2-75.2); PLATELET COUNT (AUTO) 515 K/uL (140-450); RED BLOOD CELL COUNT(AUTO) 3.61 MIL/uL (4.20-6.10); RED CELL DISTRIBUTION WIDTH 13.5 % (11.6-13.7)
[2020-10-06 07:20] LABS: ANION GAP 10.7 (8-16); CREATININE 0.6 mg/dL (0.6-1.3); POTASSIUM 3.7 mmol/L (3.5-5.1)
--- NOTE | 2020-10-06 07:32 | NUR ---
PATIENT IS STABLE, NO DISTRESS, ALL NEEDS ATTENDED, DENIES PAIN, CALL LIGHT WITHIN REACH. BEDSIDE ENDORSEMENT GIVEN TO AM SHIFT RN FOR CONTINUITY OF CARE.
--- NOTE | 2020-10-06 07:35 | NUR ---
PT RECEIVED FROM SEATING CAPTAIN RN. SPEECH THERAPIST AT BEDSIDE. PT HAS NO S/S OF DISTRESS AT THIS TIME. ALL SAFETY MEASURES ARE IN PLACE. PER SP, NPO FOR RISK OF ASPIRATION
--- NOTE | 2020-10-06 07:40 | NUR ---
PT WAS SEEN FOR DYSPHAGIA. PT WAS HAVING WET VOICE FOR TRIALS OF PUREE DIET. NO FURTHER TRIALS WAS DONE DUE TO RISK OF ASPIRATION. RECOMMENDATION NOTHING BY MOUTH
[2020-10-06 07:53] LABS: WHITE BLOOD COUNT (AUTO) 28.5 K/uL (4.8-10.8)
[2020-10-06 08:00] VITALS: BP 132/72
--- NOTE | 2020-10-06 08:32 | NUR ---
PT ASSESSED.PT IS NOT RESPONSIVE TO STIMULI. VS STABLE. NO S/S OF DISTRESS. PT WAS SUCTIONED.
--- NOTE | 2020-10-06 09:03 | NUR ---
PT REASSESSED.PT ABLE TO NOD. RT AT BEDSIDE.
[2020-10-06] MEDS: LEVOFLOXACIN 750 MG/D5W PREMIX 150 ML IV SCH (09:05)
[2020-10-06] MEDS: PANTOPRAZOLE 40 MG TABEC PO SCH (09:05)
[2020-10-06] MEDS: POTASSIUM CHLORIDE 20% 40 MEQ/15 ML UDC GT PRN (09:05)
--- NOTE | 2020-10-06 09:19 | NUR ---
MEDICATIONS VP STRATEGY PER MD ORDER. PT EDUCATED. UNABLE TO VERBALIZE UNDERSTANDING. PT TOLERATED WELL. NO S/S OF DISTRESS AT THIS TIME. CALL LIGHT IS WITHIN REACH. ALL SAFETY MEASURES ARE IN PLACE.
--- NOTE | 2020-10-06 09:21 | NUR ---
RESIDUALS 15 MLS
--- NOTE | 2020-10-06 09:35 | NUR ---
PT PULLED UP AND REPOSITIONED FOR COMFORT
--- NOTE | 2020-10-06 10:50 | NUR ---
PTS IV FLUIDS CHANGED PER MD ORDER.
--- NOTE | 2020-10-06 11:37 | NUR ---
ORAL CARE OFFERED TO PT. PT REFUSED.
--- NOTE | 2020-10-06 11:58 | NUR ---
PT SUCTIONED. MEDICATIONS ASSEMBLY LINE LEADER PER MD ORDER. PT EDUCATED. PT TOLERATED WELL. NO S/S OF DISTRESS AT THIS TIME. CALL LIGHT IS WITHIN REACH. ALL SAFETY MEASURES ARE IN PLACE.
[2020-10-06 12:00] VITALS: BP 119/61
--- NOTE | 2020-10-06 12:06 | NUR ---
ORAL RINSE PROVIDED Addendum: 10/06/20 at 1207 by Flor Addison RN RN PT TOLERATED WELL. PT SUCTIONED AND REPOSITIONED. 10 MLS FOR RESIDUALS
--- NOTE | 2020-10-06 14:00 | NUR ---
PT CLEANSED REPOSITIONED, SUCTIONED.
[2020-10-06] MEDS: NACL 0.9% 1,000 ML IV SCH (14:23)
[2020-10-06 16:00] VITALS: BP 108/66
--- NOTE | 2020-10-06 16:30 | NUR ---
MEDICATIONS NEW ACCOUNTS BANKING REPRESENTATIVE PER MD ORDER. PT EDUCATED. PT TOLERATED WELL. NO S/S OF DISTRESS AT THIS TIME. CALL LIGHT IS WITHIN REACH. ALL SAFETY MEASURES ARE IN PLACE.
--- NOTE | 2020-10-06 17:50 | NUR ---
PT CHANGED. HAD ONE LARGE BM. 3 PEOPLE ASSIST NECESSARY
--- NOTE | 2020-10-06 18:45 | NUR ---
PTS TUBE FEEDINGS WERE CHANGED.
--- NOTE | 2020-10-06 18:53 | NUR ---
PT RESTING IN BED SUCTIONED , ORAL RINSE PROVIDED.
--- NOTE | 2020-10-06 19:30 | NUR ---
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 PT STABLE .
[2020-10-06 20:00] VITALS: BP 111/55
--- NOTE | 2020-10-06 20:00 | NUR ---
RECEIVED BEDSIDE REPORT FROM DAY RN REGARDING THE PATIENT FOR CONTINUITY OF CARE. PATIENT A/A/OX4, SITTING UP IN BED WATCHING TV . PATIENT NOT ON ANY DISTRESS. NO COMPLAIN AT THIS TIME. ON TRACH TO T-BAR, FiO2 28%, SATING 94% TO 98%. PATIENT HAS A LOT OF SECRETIONS AND NEEDED TO BE SUCTION CONSTANTLY. PATIENT HAS A PRN ORDER FOR BREATHING TREATMENT. FALL PRECAUTION IMPLEMENTED. INSTRUCTED TO CALL FOR ASSISTANCE AT ALL TIMES. PATIENT VERBALIZED UNDERSTANDING WITH THE PLAN OF CARE.WILL CONTINUE MONITORING AND POC.CALL LIGHT WITHIN REACH.
--- NOTE | 2020-10-06 22:00 | NUR ---
SUCTIONED PATIENT CONSTANTLY, MOUTH CARE PROVIDED. CHANGED PATIENT LINENS AND JILLIAN CARE PROVIDED. PATIENT HAD DIARRHEA AND EPISODE OF INCONTINENCE.
[2020-10-06] MEDS ORDERED: Z-GUARD PASTE TP ONE (23:43)
[2020-10-07] VITALS: BP 117/62
--- NOTE | 2020-10-07 | NUR ---
PATIENT VITAL SIGN STABLE, AFEBRILE, SATING 99% ON TRACH TO T BAR WITH 28% FiO2 ON 6LO2. 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 WILL CONTINUE TO MONITOR.
[2020-10-07] MEDS: PIPERACILLIN/TAZOBACTAM 3.375 GM in DEXTROSE 5% 50 ML IV SCH ×4 (00:02→17:10)
--- NOTE | 2020-10-07 02:27 | NUR ---
PATIENT HAS 2 EPISODES OF SEIZURE AFTER SUCTIONED BY RESPIRATORY THERAPIST. BOTH SEIZURE LASTED 5 MINUTES. NOTED THAT PATIENT PASSING WITH EYES ROLLED UP AND NOTED BOTH UPPER ARM AND BOTH LOWER EXTREMITIES JERKING. PATIENT IS SR ON TELE ,HR-99. BP-147/80, HR-116, SATING 97% ON TRACH TO TBAR,6LO2, FiO2 28%. PAGED DR ARELLANO AND MADE AWARE. AWAITING FOR MD TO RESPOND.
[2020-10-07] MEDS: LEVALBUTEROL 1.25 MG/0.5 ML NEBU INH PRN ×4 (02:34→19:21)
[2020-10-07 04:00] VITALS: BP 124/67
--- NOTE | 2020-10-07 04:00 | NUR ---
VITAL SIGNS STABLE,AFEBRILE, SATING 94% ON TRACH TO TBAR, 6LO2, 28% FIO2. 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 SAFETY MEASURES IN PLACED.
[2020-10-07] MEDS: NACL 0.9% 1,000 ML IV SCH ×2 (05:09→15:50)
--- NOTE | 2020-10-07 06:15 | NUR ---
PATIENT STABLE. NO ACUTE EVENT THROUGHOUT THE NIGHT. NO SEIZURE ACTIVITY NOTED AFTER THE EPISODE EARLIER. PATIENT NOT IN ANY DISTRESS AT THIS TIME. NO COMPLAIN FROM THE PATIENT. ALL NEEDS ATTENDED. CALL LIGHT WITHIN REACH. WILL ENDORSE THE PATIENT TO THE ONCOMING RN FOR CONTINUITY OF CARE.
[2020-10-07] MEDS: GLYCOPYRROLATE 1 MG TAB PO SCH ×2 (06:56→16:18)
[2020-10-07 07:14] LABS: BASOPHILS % (AUTO) 0.1 % (0.0-2.0); EOSINOPHILS # (AUTO) 0.3 K/uL (0-0.4); EOSINOPHILS % (AUTO) 1.7 % (0.0-4.0); HEMATOCRIT 29.8 % (36-52); HEMOGLOBIN 9.3 g/dL (12.0-18.0); LYMPHOCYTES # (AUTO) 1.3 K/uL (2.0-11.5); LYMPHOCYTES % (AUTO) 7.7 % (20.5-51.1); MEAN CORPUSCULAR HEMOGLOBIN 28 pg (27-31); MEAN CORPUSCULAR HGB CONC 31 g/dL (33-37); MEAN CORPUSCULAR VOLUME 90.6 fL (80-94); MONOCYTES # (AUTO) 1.1 K/uL (0.8-1.0); MONOCYTES % (AUTO) 6.4 % (1.7-9.3); NEUTROPHILS # (AUTO) 14.7 K/uL (1.8-7.7); NEUTROPHILS % (AUTO) 84.1 % (42.2-75.2); PLATELET COUNT (AUTO) 512 K/uL (140-450); RED BLOOD CELL COUNT(AUTO) 3.29 MIL/uL (4.20-6.10); RED CELL DISTRIBUTION WIDTH 13.8 % (11.6-13.7); WHITE BLOOD COUNT (AUTO) 17.5 K/uL (4.8-10.8)
[2020-10-07 07:30] LABS: ANION GAP 10.6 (8-16); CARBON DIOXIDE 29.1 mmol/L (21-32); CREATININE 0.5 mg/dL (0.6-1.3); POTASSIUM 3.7 mmol/L (3.5-5.1)
--- NOTE | 2020-10-07 07:34 | NUR ---
ENDORSED PATIENT TO DAY RN FREDDIE REGARDING THE PATIENT FOR CONTINUITY OF CARE. PATIENT STABLE.SIGNING OFF.
[2020-10-07] MEDS ORDERED: LORazepam 2 MG/ML VIAL IM/IVP PRN (07:35)
--- NOTE | 2020-10-07 07:35 | NUR ---
RECEIVED REPORT FROM PAINTING DEPARTMENT SUPERVISOR RN FOR CONTINUITY OF CARE. PT HAS SEIZURE LIKE ACTIVITY AT 0715 LASTING 30 SECONDS. VITAL SIGNS POST SZ: 98.9, 130, 26, 136/82, 95% PT REMAINS ON TRACH TO TBAR WITH FIO2 28% AND 6L 02. DR. ARELLANO WAS NOTIFIED. POC DISCUSSED AND WILL CONTINUE WITH POC.
--- NOTE | 2020-10-07 07:52 | NUR ---
RECEIVED ON SUPPLEMENTAL OXYGEN AT 28%/6 LPM VIA COOL AEROSOL TO INLINE SUCTION CATHETER/TRACHEOSTOMY TUBE SATURATION 90% DEEP TRACHEAL SUCTION X 2 FOR LARGE SEMI THICK YELLOW SECRETIONS HHN PRN THERAPY GIVEN AT THIS TIME PATIENT PRESENTING WITH SEIZURE ACTIVITY X 1 DURING HHN THERAPY FREDDIE/RN MADE AWARE POST HHN THERAPY INCREASED FIO2 TO 30% TO KEEP SATURATION GREATER THAN 90%
[2020-10-07 08:00] VITALS: BP 137/74
--- NOTE | 2020-10-07 08:00 | NUR ---
RECEIVED ORDERS FROM DR. ARELLANO TO ORDER HOME SEIZURE MEDICATIONS HOWEVER WE DO NOT CARRY THEM CONTACTED PHARMACY AND ATTEMPTED TO CONTACT FACILITY HOWEVER NOT ANSWER PHONE CALLS AT THIS TIME. WILL CONTINUE TO TRY TO GET HOME MEDS DELIVERED IF POSSIBLE.
[2020-10-07] MEDS: LORazepam 2 MG/ML VIAL IM/IVP PRN ×3 (08:28→09:00)
--- NOTE | 2020-10-07 08:28 | NUR ---
PT HAS ANOTHER SEIZURE LIKE ACTIVITY OBSERVED BY CONTRACTION OF UPPER EXTREMITIES. AND EYES ROLLING UP. 98.9, 134, 26, 132/82, 95% POST SEIZURE. PT WAS GIVEN 1 MG OF ATIVAN PER MD ORDERS. Addendum: 10/07/20 at 0854 by Priscila Gaitan RN UPON ASSESSMENT LEFT WRIST IV INFILTRATION STARTED NEW IV TO RIGHT WRIST 24 G ON FIRST ATTEMPT.
[2020-10-07] MEDS: clonazePAM 0.5 MG TAB GT SCH ×3 (08:29→16:57)
[2020-10-07] MEDS: LEVOFLOXACIN 750 MG/D5W PREMIX 150 ML IV SCH (08:30)
[2020-10-07] MEDS: LACTOBACILLUS RHAMNOSUS GG 1 EACH CAP PO SCH (08:30)
--- NOTE | 2020-10-07 08:36 | NUR ---
SCHEDULED MEDICATION GIVEN HAS 30ML OF RESIDUAL TO GT. OBSERVED ANOTHER EPISODE OF SEIZURE LIKE ACTIVITY LASTING APPROX 40 SEC. 2ND DOSE OF ATIVAN 1 MG WAS GIVEN. POST SEIZURE VS 99.1, 125, 26, 139/89, 97% ON TRACH TO TBAR 6 L. LUNG SOUNDS RHONCI. ABS I SOFT AND NONTENDER WITH ACTIVE BS X 4.
[2020-10-07] MEDS: LANSOPRAZOLE 30 MG CAPDR GT SCH (09:13)
[2020-10-07] MEDS ORDERED: levETIRAcetam 1,000 MG in NACL 0.9% 100 ML IV SCH (09:45)
[2020-10-07] MEDS ORDERED: NACL 0.9% 500 ML IV SCH (09:50)
--- NOTE | 2020-10-07 09:51 | NUR ---
NOTIFIED DR. ARELLANO OF HR 160 WITH GOING DOWN TO 130-[address] ARELLANO ORDER CHEST XRAY TO START KEPPRA IV AND NS 500ML BOLUS X 1
--- NOTE | 2020-10-07 09:57 | NUR ---
CAD CAM PROGRAMMER CALLED TO BEDSIDE DR. LD MCKENZIE REVIEWED PATIENT PULMONARY AND CARDIAC STATUS VORBO: PLACE ON VENTILATOR MODE AC RATE 12 FIO2 GREATER THAN 90% PEEP 5; NO ABG REQUIRED
[2020-10-07] MEDS ORDERED: LORazepam 2 MG/ML VIAL IVP SCH (10:08)
--- NOTE | 2020-10-07 10:15 | NUR ---
PATIENT WITH PORTEX CUFFLESS TRACHEOSTOMY TUBE; TUBE SEEMS VIABLE TO STOMA ATTEMPT TO PLACE ON VENTILATOR WITH MODE OF EITHER VC OR PC TO ASSESS FOR VOLUME LEAKAGE JILLIAN-STOMA; EXPIRATORY Vt LOW 200ml UNABLE TO MAINTAIN EXPIRATORY Vt OF 6ml/kg (470ml) PER IBW DUE TO EXCESSIVE VOLUME LEAK AT JILLIAN-STOMA MIX HOUSE OPERATOR TO CONTACT DR. LD WATKINS FOR ORDER TO CHANGE TO A CUFFED TRACHEOSTOMY TUBE
--- NOTE | 2020-10-07 10:17 | NUR ---
TEXTED PLUS LEFT VOICEMAIL TO DR. LD WATKINS VIA MST/RN PHONE FOR ORDERS TO CHANGE TRACHEOSTOMY TUBE TO CUFFED
--- NOTE | 2020-10-07 10:23 | NUR ---
TEXT REPLY FROM DR. LD WATKINS "OK" TO CHANGE TO CUFFED TRACHEOSTOMY TUBE
--- NOTE | 2020-10-07 10:24 | NUR ---
CALLED ER [phone] SPOKE TO Eddi GRAVES/RN IN RE TO ERMD TO CHANGE TRACHEOSTOMY TUBE; RN STATED THAT DR. SORIANO WILL ATTEND PATIENT BEDSIDE TO ASSESS AND POSSIBLY CHANGE TRACHEOSTOMY TUBE
--- NOTE | 2020-10-07 10:40 | NUR ---
DR. SORIANO AT BEDSIDE REVIEWED NEED FOR TRACHEOSTOMY TUBE CHANGE; ERMD ASSESSED; TRACHEOSTOMY TUBE CHANGED WITH A PORTEX DCT #8 CUFFED WITHOUT ADVERSE REACTIONS NOTED; PRE AND POST OXYGEN AND TRACHEAL SUCTION ADMINISTERED
--- NOTE | 2020-10-07 10:44 | NUR ---
PLACED ON A [employer]APE VENTILATOR PLUGGED INTO RED OUTLET TOLERATING WELL TO A PORTEX DCT #8 AIRWAY CUFF PRESSURE CHECKED NOTED AMBU BAG AT BEDSIDE
--- NOTE | 2020-10-07 10:48 | NUR ---
VENTILATOR CHANGES: INCREASED Vt TO 450ml TO MAINTAIN EXPIRATORY Vt OF 6ml/kg (470ml) PER IBW; INCREASED RATE TO 18 BPM TO DECREASE WOB WELL DIGGER TO MONITOR AND ADJUST NEEDED
--- NOTE | 2020-10-07 11:00 | NUR ---
PT NOW ON MECHANICAL VENTILATION WITH FIO2 45%. SPO2 96% RESP 18. PT CONTINUES TO RECEIVE GT FEEDING TOLERATING WELL. PT WAS GIVEN ATIVAN [address] WATKINS ORDER AT 1010 NO SEIZURE LIKE ACTIVITY AT THIS TIME.
[2020-10-07 12:00] VITALS: BP 135/71
--- NOTE | 2020-10-07 12:40 | NUR ---
SCHEDULED MEDICATION GIVEN TOLERATED WELL. FAMILY NOTIFIED OF PATIENT CHANGE IN CONDITION WITH BEING PLACED ON MECHANICAL VENTILATION. PT RESTING IN BED WITH EYES CLOSED SPO2 97%
--- NOTE | 2020-10-07 14:13 | NUR ---
RESTING COMFORTABLY GOOD CHEST RISE EXPIRATORY Vt AT 450ml INCREASED Vt TO 475ml TO MAINTAIN EXPIRATORY Vt OF 6ml/kg (470ml) OR GREATER SATURATION 98% ON FIO2 OF 45% PEEP 5cmH2O POST HHN THERAPY DECREASED FIO2 TO 35% FREDDIE/RN NOTIFIED OF VENTILATOR CHANGES
--- NOTE | 2020-10-07 14:51 | NUR ---
PT RESTING IN BED AT THIS TIME. IN NO DISTRESS. NO SEIZURE LIKE ACTIVITY AT THIS TIME. FAMILY AT WINDOW.
[2020-10-07] MEDS: LORazepam 2 MG/ML VIAL IVP PRN (15:34)
--- NOTE | 2020-10-07 15:53 | NUR ---
RESTING COMFORTABLY NO EVIDENCE OF PULMONARY DISTRESS NOTED EQUAL CHEST RISE GOOD AERATION THROUGHOUT BILATERAL LUNG CALIXTO AIRWAY PATENT
[2020-10-07 16:00] VITALS: BP 107/55
[2020-10-07] MEDS ORDERED: PHENYTOIN 1,000 MG in NACL 0.9% 100 ML IV ONE (16:00)
--- NOTE | 2020-10-07 16:25 | NUR ---
FAMILY BROUGHT IN MEDICATION FROM HOME. MEDICATION TAKEN TO PHARMACY WILL CONTACT DR. ARELLANO TO GET ORDER.
--- NOTE | 2020-10-07 17:30 | NUR ---
SPOKE WITH DR. ARELLANO WILL ORDER REGULAR HOME MEDICATION AND DC DILANTIN. ATTEMPTED TO INPUT ORDERS HOWEVER UNABLE TO AT THIS TIME. WILL F/U WITH [facility].
--- NOTE | 2020-10-07 17:45 | NUR ---
RESTING WELL EQUAL CHEST RISE DEEP TRACHEAL SUCTION FOR MODERATE SEMI THICK YELLOW SECRETIONS AIRWAY PATENT
--- NOTE | 2020-10-07 19:11 | NUR ---
PT ENDORSED TO SENIOR SOLUTIONS CONSULTANT RN FOR CONTINUITY OF CARE. POC DISCUSSED. ENDORSED SEIZURE MEDICATION THAT WAS ORDERED THROUGH COMMUNICATION ORDER TO BE STARTED TONIGHT. ALDO Medeiros/Juan PER MD ORDER SINCE REGULAR MEDICATION WILL BE STARTED TONIGHT. FAMILY UPDATED REGARDING MEDICATION Addendum: 10/07/20 at 1914 by Priscila Gaitan RN VENT SETTINGS FIO2 35%, VT 475, RATE 18, PEEP 5 SPO2 97% HR 110.
[2020-10-07 20:00] VITALS: BP 140/72
--- NOTE | 2020-10-07 20:00 | NUR ---
Received bedside report from day Rn regarding the patient for continuity of care. Patient a/a/ox2, confused at times. Patient able to verbalized needs sometimes.Not in any distress this time. On vent setting as ordered, sating 100%. IVF infusing as ordered. Patient on GTF Vital 1.2 @ 65cc/hr. Held it for now patient has >100cc residual. HOB elevated. Side rails up x2, bed in low position and bed alarm on. Call light within reach. Will continue POC and monitoring.
[2020-10-07] MEDS: levETIRAcetam 1,000 MG in NACL 0.9% 100 ML IV SCH (20:26)
[2020-10-07] MEDS: ESCITALOPRAM 20 MG TAB GT SCH (20:28)
[2020-10-07] MEDS: MYCOPHENOLATE 250 MG CAP PO SCH (20:28)
--- NOTE | 2020-10-07 20:30 | NUR ---
Patient iv not patent. Discontinued the iv on the rt wrist,cannula intact. No bleeding or hematoma noted. Started a new iv on the right hand gauge 22.
[2020-10-07] MEDS: COMMUNICATION ORDER MC SCH (21:00)
--- NOTE | 2020-10-07 22:00 | NUR ---
ADMINISTERED ALL THE SCHEDULED MEDICATIONS EARLIER ORDERED. PATIENT TOLERATED IT WELL. NO ADVERSE DRUG REACTION NOTED. WILL CONTINUE TO OBSERVE.
[2020-10-07] MEDS ORDERED: PHENYTOIN 100 MG/2 ML VIAL IVP SCH (23:00)
[2020-10-08] VITALS (9 sets, daily range): BP systolic 90–129; BP diastolic 44–85
--- NOTE | 2020-10-08 | NUR ---
VITAL SIGNS STABLE, AFEBRILE, SATING 100% ON VENT SETTING. NOT IN ANY DISTRESS. NO COMPLAIN AT THIS TIME. CALL LIGHT WITHIN REACH. SAFETY MEASURES IN PLACED.
[2020-10-08] MEDS: PIPERACILLIN/TAZOBACTAM 3.375 GM in DEXTROSE 5% 50 ML IV SCH ×3 (00:28→12:20)
--- NOTE | 2020-10-08 02:00 | NUR ---
PATIENT ASLEEP AT THIS TIME. VISIBLE SYMMETRICAL CHEST RISE AND FALL NOTED. NOT IN ANY DISTRESS AT THIS TIME. SAFETY MEASURES. IN PLACED.
[2020-10-08] MEDS: NACL 0.9% 1,000 ML IV SCH ×2 (03:23→16:14)
--- NOTE | 2020-10-08 04:00 | NUR ---
VITAL SIGNS STABLE, AFEBRILE, SATING 98% ON TRACH TO VENT SETTING. ST ON TELE MONITOR, HR-103. NOT IN ANY DISTRESS. NO COMPLAIN AT THIS TIME. CALL LIGHT WITHIN REACH.
[2020-10-08] MEDS: LEVALBUTEROL 1.25 MG/0.5 ML NEBU INH PRN (04:29)
[2020-10-08] MEDS: levETIRAcetam 1,000 MG in NACL 0.9% 100 ML IV SCH ×3 (04:57→21:05)
--- NOTE | 2020-10-08 05:47 | NUR ---
MESSAGED DR ARELLANO AND NOTIFIED MD THAT THE PATIENT DIDN'T HAVE A URINE OUTPUT YET THE WHOLE SHIFT. BLADDER SCAN DONE AND SHOWED >400 CC IN THE BLADDER. AWAITING FOR MD TO CALL BACK OR RESPOND.
--- NOTE | 2020-10-08 05:49 | NUR ---
DR ARELLANO TEXTED BACK AND AWARE THAT THE PT HASN'T URINATE AND ORDERED TO DO STRAIGHT CATHETER.
[2020-10-08 06:04] LABS: BASOPHILS % (AUTO) 0.2 % (0.0-2.0); EOSINOPHILS # (AUTO) 0.7 K/uL (0-0.4); EOSINOPHILS % (AUTO) 6.4 % (0.0-4.0); HEMATOCRIT 27.4 % (36-52); HEMOGLOBIN 8.9 g/dL (12.0-18.0); LYMPHOCYTES # (AUTO) 1.4 K/uL (2.0-11.5); LYMPHOCYTES % (AUTO) 13.7 % (20.5-51.1); MEAN CORPUSCULAR HEMOGLOBIN 29 pg (27-31); MEAN CORPUSCULAR HGB CONC 33 g/dL (33-37); MEAN CORPUSCULAR VOLUME 89.9 fL (80-94); MONOCYTES % (AUTO) 10.4 % (1.7-9.3); NEUTROPHILS % (AUTO) 69.3 % (42.2-75.2); PLATELET COUNT (AUTO) 475 K/uL (140-450); RED BLOOD CELL COUNT(AUTO) 3.05 MIL/uL (4.20-6.10); RED CELL DISTRIBUTION WIDTH 13.8 % (11.6-13.7); WHITE BLOOD COUNT (AUTO) 10.1 K/uL (4.8-10.8)
[2020-10-08 06:15] LABS: ANION GAP 12.8 (8-16); CARBON DIOXIDE 27.3 mmol/L (21-32); CREATININE 0.6 mg/dL (0.6-1.3); POTASSIUM 3.1 mmol/L (3.5-5.1)
[2020-10-08 06:21] LABS: MAGNESIUM 1.8 mg/dL (1.8-2.4); PHOSPHORUS 3.8 mg/dL (2.5-4.9)
--- NOTE | 2020-10-08 06:34 | NUR ---
DID STRAIGHT CATHETER ORDERED. 400 CC ARMANDO URINE CAME OUT. SENT SPECIMEN TO THE LAB ORDERED. PT TOLERATED THE PROCEDURE WELL.
[2020-10-08] MEDS: GLYCOPYRROLATE 1 MG TAB PO SCH ×2 (06:36→17:30)
--- NOTE | 2020-10-08 06:47 | NUR ---
PATIENT STABLE. NO ACUTE EVENT THROUGHOUT THE NIGHT. NO SEIZURE ACTIVITY NOTED THROUGHOUT THE SHIFT. PATIENT NOT IN ANY DISTRESS AT THIS TIME. NO COMPLAIN FROM THE PATIENT. ALL NEEDS ATTENDED. CALL LIGHT WITHIN REACH. WILL ENDORSE THE PATIENT TO THE ONCOMING RN FOR CONTINUITY OF CARE.
--- NOTE | 2020-10-08 07:40 | NUR ---
RECEIVED BEDSIDE REPORT FROM SERGEANT OF OFFICERS NURSE. PATIENT SUPINE IN BED, HOB 30 DEGREES, BREATHING EVEN AND UNLABORED NO SIGNS OF ACUTE DISTRESS NOTED. PATIENT RESPONDS TO NAME AND LIGHT TOUCH. TRACH TO VENT: ACVC 40% FIO2, CT 475, RR 18, PEEP 5. G TUBE FEEDING RUNNING: VITAL AF @ 65 ML/HR. RH 22G INFUSING NS @ 80 ML/HR. SEIZURE PRECAUTIONS IN PLACE, MEDIA SUPERVISOR AND SAFETY MEASURES IN PLACE.
--- NOTE | 2020-10-08 07:40 | NUR ---
ENDORSED PATIENT TO DAY RN , REGARDING THE PATIENT FOR CONTINUITY OF CARE. PATIENT STABLE.SIGNING OFF.
--- NOTE | 2020-10-08 07:40 | NUR ---
RECEIVED BEDSIDE REPORT FROM PUTAWAY DRIVER NURSE. PATIENT RIGHT LATERAL IN BED, SLEEPING, ANSWERS TO NAME, AND ABLE TO MAKE NEEDS KNOWS. BREATHING EVEN AND UNLABORED, NO SINGS OF ACUTE DISTRESS NOTED, ON RA. L FA 20G, INFUSING NS @ 100 ML/HR. BED IN LOW POSITION, MATERIAL ANALYST IN PLACE, SAFETY MEASURES IN PLACE. Addendum: 10/08/20 at 0830 by Minna Casper RN RN INCORRECT PATIENT.
[2020-10-08] MEDS ORDERED: PANTOPRAZOLE 40 MG TABEC PO SCH (09:00)
[2020-10-08] MEDS ORDERED: PATIENTS OWN TABLET PO SCH ×6 (09:00→21:00)
[2020-10-08] MEDS: clonazePAM 0.5 MG TAB GT SCH ×3 (09:48→17:30)
[2020-10-08] MEDS: ESCITALOPRAM 20 MG TAB GT SCH ×2 (09:54→21:05)
[2020-10-08] MEDS: LANSOPRAZOLE 30 MG CAPDR GT SCH (09:54)
[2020-10-08] MEDS: LEVOFLOXACIN 750 MG/D5W PREMIX 150 ML IV SCH (09:55)
[2020-10-08] MEDS: MYCOPHENOLATE 250 MG CAP PO SCH ×2 (09:55→21:05)
[2020-10-08] MEDS: LACTOBACILLUS RHAMNOSUS GG 1 EACH CAP PO SCH (09:56)
[2020-10-08] MEDS: POTASSIUM CHLORIDE 20% 40 MEQ/15 ML UDC GT PRN (09:57)
[2020-10-08] MEDS: LORazepam 2 MG/ML VIAL IVP PRN ×2 (11:31→15:52)
--- NOTE | 2020-10-08 11:31 | NUR ---
PRN ATIVAN ADMINISTERED PER MD ORDER FOR SEIZURES. MED EDUCATION PROVIDED, REINFORCEMENT NEEDED.
--- NOTE | 2020-10-08 12:48 | NUR ---
ADMINISTERED SCHEDULED MEDS PER MD ORDER. MED EDUCATION PROVIDED, REINFORCEMENT NEEDED.
--- NOTE | 2020-10-08 15:49 | NUR ---
PT SUCTIONED OBTAINED MODERATE AMOUNT OF THIN WHITE SECRETIONS, AIRWAY IS PATENT AND TRACH IS SECURE. PT HAS ACTIVE GAG REFLEX. PT IS TACHYCARDIC AND TACHYPNEIC AT THIS TIME. NURSE AWARE OF PT STATUS. WILL CONTINUE TO MONITOR.
[2020-10-08] MEDS ORDERED: LORazepam 2 MG/ML VIAL IM/IVP SCH (16:10)
[2020-10-08] MEDS: ACETAMINOPHEN 325 MG TAB PO PRN (16:15)
[2020-10-08] MEDS: PATIENTS OWN TABLET GT/PO SCH ×3 (16:15→21:05)
[2020-10-08] MEDS ORDERED: PHENYTOIN 1,000 MG in NACL 0.9% 100 ML IV SCH ×2 (16:30→21:05)
--- NOTE | 2020-10-08 17:08 | NUR ---
10/08/20 RD FOLLOW UP COMPLETED. PLEASE REFER TO NUTRITION PROGRESS NOTES UNDER CARE ACTIVITY FOR ESTIMATED NUTRITIONAL NEEDS. RD RECOMMENDATIONS: 1.CONTINUE VITAL AF 1.2 @ 65 ML/HR AND FREE WATER FLUSH OF 100 ML Q4H -THIS WILL PROVIDE 1560 ML OF VOLUME, 1872 KCAL AND 117 GM OF PROTEIN, MEETING 100% OF KCAL AND PROTEIN NEEDS 2. RD TO FOLLOW-UP 3-5 DAYS, MODERATE RISK SARAH HOYT MBA, RD
--- NOTE | 2020-10-08 17:13 | NUR ---
TRACH CARE COMPLETED ALONG WITH VENT CHECK. VENT ALARMS REMAIN ON AND FUNCTIONING. TRACH IS SECURE WITH A PATENT AIRWAY.
[2020-10-08] MEDS ORDERED: PIPERACILLIN/TAZOBACTAM 4.5 GM in DEXTROSE 5% 50 ML IV SCH (18:00)
[2020-10-08] MEDS: PIPERACILLIN/TAZOBACTAM 4.5 GM in DEXTROSE 5% 100 ML IV SCH (18:24)
--- NOTE | 2020-10-08 19:11 | NUR ---
ENDORSED TO ANIMAL CARE SUPERVISOR NURSE FOR CONTINUITY OF CARE. PATIENT STABLE AT THIS TIME.
--- NOTE | 2020-10-08 19:11 | NUR ---
RECEIVED PATIENT FROM AM SHIFT NURSE FOR CONTINUITY OF CARE. ALERT AND ABLE TO MAKE SIMPLE NEEDS KNOWN. TRACH TO VENT. RESPIRATIONS EVEN, UNLABORED. NO S/S RESPIRATORY DISTRESS. S1/S2 AUSCULTATED. TELE MONITORING. SKIN WARM, DRY. IV SITE TO LEFT WRIST 24G PATENT/INTACT, INFUSING FLUIDS WELL. NO C/O PAIN. NO S/S ACUTE DISTRESS. ABDOMEN SOFT, NONTENDER, NONDISTENDED. BOWEL SOUNDS ACTIVE x4 QUADRANTS. GT PATENT/INTACT, CONTINUES ON ENTERAL FEEDING, TOLERATING WELL. NO RESIDUAL NOTED. HOB UP 30 DEGREES. INCONTINENT OF B/B. PLAN OF CARE DISCUSSED. CALL LIGHT WITHIN REACH AT ALL TIMES.
[2020-10-08] MEDS: COMMUNICATION ORDER MC SCH (21:00)
--- NOTE | 2020-10-08 21:00 | NUR ---
DUE MEDS GIVEN. NO S/S RESPIRATORY DISTRESS. NO C/O PAIN. NO S/S ACUTE DISTRESS. CALL LIGHT WITHIN REACH AT ALL TIMES.
[2020-10-08] MEDS ORDERED: PHENYTOIN 100 MG/2 ML VIAL IVP ONE ×2 (21:10→21:11)
--- NOTE | 2020-10-08 21:54 | NUR ---
PT RECEIVED ON AC/VC 475 +5, f18 28% W/ ALARMS ON & AUDIBLE. VENT PLUGGED INTO RED OUTLET + AMBU AT BEDSIDE. PT HAS A SECURED PORTEX 8 TRACH WILL CONTINUE TO MONITOR
--- NOTE | 2020-10-08 23:30 | NUR ---
PATIENT NO S/S RESPIRATORY DISTRESS. NO S/S ACUTE DISTRESS. CALL LIGHT WITHIN REACH AT ALL TIMES.
[2020-10-09] VITALS (14 sets, daily range): BP systolic 87–115; BP diastolic 48–72
[2020-10-09] MEDS: PIPERACILLIN/TAZOBACTAM 4.5 GM in DEXTROSE 5% 100 ML IV SCH ×5 (00:22→23:14)
--- NOTE | 2020-10-09 01:33 | NUR ---
PATIENT IS ASLEEP. NO S/S RESPIRATORY DISTRESS. NO C/O PAIN. NO S/S ACUTE DISTRESS. CALL LIGHT WITHIN REACH AT ALL TIMES.
--- NOTE | 2020-10-09 03:33 | NUR ---
RT AT BEDSIDE. NO S/S RESPIRATORY DISTRESS. NO C/O PAIN. CALL LIGHT IN REACH. SEIZURE PRECAUTIONS IN PLACE.
[2020-10-09] MEDS: levETIRAcetam 1,000 MG in NACL 0.9% 100 ML IV SCH ×3 (04:36→21:08)
[2020-10-09] MEDS: PHENYTOIN 100 MG/2 ML VIAL IVP SCH ×3 (04:36→21:10)
[2020-10-09] MEDS: NACL 0.9% 1,000 ML IV SCH ×2 (04:45→16:53)
--- NOTE | 2020-10-09 04:50 | NUR ---
PT HAS SECURED PORTEX 8 TRACH W/ PATENT AIRWAY AND REMAINS ON AC/VC 475 +5, f18 28% W/ ALARMS ON & AUDIBLE W/ NO CHANGES. VENT PLUGGED INTO RED OUTLET + AMBU AT BEDSIDE. TRACH CARE HAS BEEN PERFORMED. TRACH TIES, NARVAEZ, HME, OMNI FLEX, AND SUCTION TUBING WERE ALL CHANGED.
--- NOTE | 2020-10-09 05:37 | NUR ---
PATIENT ASLEEP. NO S/S ACUTE DISTRESS. CALL LIGHT WITHIN REACH.
[2020-10-09 05:55] LABS: BASOPHILS % (AUTO) 0.4 % (0.0-2.0); EOSINOPHILS # (AUTO) 0.5 K/uL (0-0.4); EOSINOPHILS % (AUTO) 5.5 % (0.0-4.0); HEMATOCRIT 27.1 % (36-52); HEMOGLOBIN 8.9 g/dL (12.0-18.0); LYMPHOCYTES # (AUTO) 1.8 K/uL (2.0-11.5); LYMPHOCYTES % (AUTO) 19.5 % (20.5-51.1); MEAN CORPUSCULAR HEMOGLOBIN 29 pg (27-31); MEAN CORPUSCULAR HGB CONC 33 g/dL (33-37); MEAN CORPUSCULAR VOLUME 89.4 fL (80-94); MONOCYTES # (AUTO) 1.2 K/uL (0.8-1.0); MONOCYTES % (AUTO) 12.8 % (1.7-9.3); NEUTROPHILS # (AUTO) 5.7 K/uL (1.8-7.7); NEUTROPHILS % (AUTO) 61.8 % (42.2-75.2); PLATELET COUNT (AUTO) 525 K/uL (140-450); RED BLOOD CELL COUNT(AUTO) 3.03 MIL/uL (4.20-6.10); RED CELL DISTRIBUTION WIDTH 14.2 % (11.6-13.7); WHITE BLOOD COUNT (AUTO) 9.2 K/uL (4.8-10.8)
[2020-10-09 06:18] LABS: ANION GAP 11.6 (8-16); CARBON DIOXIDE 29.5 mmol/L (21-32); CREATININE 0.6 mg/dL (0.6-1.3); POTASSIUM 3.1 mmol/L (3.5-5.1)
[2020-10-09] MEDS: GLYCOPYRROLATE 1 MG TAB PO SCH ×2 (06:49→16:51)
--- NOTE | 2020-10-09 07:30 | NUR ---
RECEIVED PATIENT FROM LEATHER GOODS MAKER NURSE. TRACH TO VENT. AC/VC FIO2 28% TV 475 R 18 PEEP 5. AOX3, ABLE TO MAKE NEEDS KNOWN VIA NODDING/GESTURES. NO C/O PAIN AT THIS TIME, RESPIRATIONS EVEN AND UNLABORED, SKIN WARM AND DRY. IV SITE LEFT WRIST 24G INFUSING IVF. GT INTACT AND PATENT CONNECTED TO TUBE FEEDING. SKIN INTACT. ABDOMEN SOFT, NONTENDER. CALL LIGHT WITHIN REACH. WILL CONTINUE TO MONITOR
[2020-10-09] MEDS: LEVALBUTEROL 1.25 MG/0.5 ML NEBU INH PRN ×2 (08:08→23:58)
--- NOTE | 2020-10-09 08:08 | NUR ---
RECEIVED ON A [employer] R860 VENTILATOR PLUGGED INTO RED OUTLET TOLERATING WELL WITHOUT ADVERSE REACTIONS NOTED TO A PORTEX DCT #8 AIRWAY SECURED WITH A JOANNA TRACH TIE CUFF PRESSURE CHECKED NOTED AMBU BAG AT BEDSIDE RESTING WELL GOOD EQUAL CHEST RISE DEEP TRACHEAL SUCTION FOR MODERATE SEMI THICK YELLOW SECRETIONS AIRWAY PATENT
[2020-10-09] MEDS ORDERED: PATIENTS OWN TABLET GT/PO SCH (09:00)
[2020-10-09] MEDS: COMMUNICATION ORDER MC SCH ×2 (09:00→21:29)
[2020-10-09] MEDS: PATIENTS OWN TABLET GT/PO SCH ×6 (09:00→21:29)
--- NOTE | 2020-10-09 09:00 | NUR ---
NOTIFIED PHARMACIST GRACIE ABOUT MISSING MED. APTIOM NOT IN PT'S CASSETTE. PHARMACIST WILL FOLLOW UP
--- NOTE | 2020-10-09 09:05 | NUR ---
STABLE GOOD CHEST RISE AND [id number] THROUGHOUT BILATERAL LUNG CALIXTO AIRWAY PATENT AURELIO/RN AT BEDSIDE FOR LOWER EXTREMITY REPOSITION
--- NOTE | 2020-10-09 09:15 | NUR ---
GT INTACT WITH 60CC RESIDUAL VOLUME. DUE MORNING MEDS GIVEN VIA GT. TOLERATED WELL
[2020-10-09] MEDS: MYCOPHENOLATE 250 MG CAP PO SCH ×2 (09:38→21:11)
[2020-10-09] MEDS: clonazePAM 0.5 MG TAB GT SCH ×3 (09:39→16:53)
[2020-10-09] MEDS: ESCITALOPRAM 20 MG TAB GT SCH ×2 (09:39→21:09)
[2020-10-09] MEDS: LACTOBACILLUS RHAMNOSUS GG 1 EACH CAP PO SCH (09:52)
[2020-10-09] MEDS: PANTOPRAZOLE 40 MG INJ VIAL IVP SCH (09:52)
--- NOTE | 2020-10-09 10:45 | NUR ---
MORNING CARE AND SKIN CARE DONE. TURNED AND REPOSITIONED PT
--- NOTE | 2020-10-09 11:44 | NUR ---
NO SOB NOTED EQUAL CHEST RISE AIRWAY PATENT
[2020-10-09] MEDS ORDERED: Z-GUARD PASTE TP SCH (14:00)
--- NOTE | 2020-10-09 14:00 | NUR ---
PT'S FATHER CALLED REQUESTING INFO ABOUT PT'S MEDS
--- NOTE | 2020-10-09 14:48 | NUR ---
RESTING WELL NO DISTRESS NOTED EQUAL CHEST RISE GOOD AERATION THROUGHOUT BILATERAL LUNG CALIXTO AIRWAY PATENT
--- NOTE | 2020-10-09 15:30 | NUR ---
WITH COPIOUS AMOUNT OF TRACH AND ORAL SECRETIONS. SUCTIONED NEEDED
--- NOTE | 2020-10-09 15:52 | NUR ---
LOC AWAKE AND ALERT PATIENT PRESENTING WITH INCREASED SOB BREATH SOUNDS COARSE RHONCHI BILATERAL DEEP TRACHEAL SUCTION FOR COPIOUS SEMI THICK TO THIN YELLOW SECRETIONS OROPHARYNGEAL SUCTION FOR COPIOUS0 SEMI THICK YELLOW SECRETIONS AIRWAY PATENT
--- NOTE | 2020-10-09 17:15 | NUR ---
WITH LARGE BM. PERICARE RENDERED. REPOSITIONED PT
--- NOTE | 2020-10-09 17:53 | NUR ---
RESTING COMFORTABLY GOOD CHEST RISE DEEP TRACHEAL SUCTION FOR MODERATE THIN YELLOW SECRETIONS AIRWAY PATENT
--- NOTE | 2020-10-09 18:25 | NUR ---
PATIENT IN BED. NO S/S RESPIRATORY DISTRESS. NO C/O PAIN. NO S/S ACUTE DISTRESS
[2020-10-09] MEDS: HYDROcodone/APAP 7.5/325 MG 1 TAB PO PRN ×2 (18:43→23:13)
[2020-10-09] MEDS: POTASSIUM CHLORIDE 20% 40 MEQ/15 ML UDC GT PRN (18:47)
--- NOTE | 2020-10-09 19:25 | NUR ---
RECEIVED BEDSIDE REPORT FROM MEGHA CAREY FOR CONTINUITY OF CARE. PT IS AWAKE AND ALERT, NODDING TO QUESTIONS APPROPRIATELY. ON TRACH TO VENT WITH FIO2 AT 28%, PEEP 5, VT 475, AND RT 18. O2 SAT IS 97% AND BREATHING IS UNLABORED. NO RESPIRATORY DISTRESS NOTED. ON TELE MONITORING, SR. G TUBE IN PLACE RUNNING FEEDING, VITAL AF 1.2 AT 65 ML PER HOUR PER ORDER. SKIN IS WARM, DRY, AND INTACT. IV IS IN THE LEFT WRIST 22 GAUGE RUNNING NS AT 80 ML PER HOUR PER ORDER. PT IS STABLE. WILL CONTINUE TO MONITOR. FALL AND STANDARD PRECAUTIONS IN PLACE. PLAN OF CARE DISCUSSED.
--- NOTE | 2020-10-09 21:30 | NUR ---
PT WAS REPOSITIONED. G TUBE RESIDUAL WAS LESS THAN 5 ML. NEW G TUBE FEEDING AND TUBING WAS STARTED. NEW IV TUBING WAS CHANGED AND IV IS FLUSHING WELL. DRESSING CHANGE WAS PROVIDED ON IV IT APPEARED TO BE LIFTING FROM LEFT WRIST. PT DENIES ANY PAIN AT THE IV SITE. PT IS TRACH TO VENT WITH O2 SAT AT 98%. ORAL CARE WAS PROVIDED AND PT WAS SUCTIONED VIA TRACH BY RT LIANG. MINIMAL CREAMY, WHITE SECRETIONS WERE EXPELLED. PT IS STABLE AT THIS TIME.
--- NOTE | 2020-10-09 23:13 | NUR ---
PT STATES HE HAS PAIN ALL OVER BODY PARTICULARLY IN THE LOWER EXTREMITIES. PT MOUTHED WORDS TO EXPRESS THAT HE WAS FEELING PAIN. PT SAID THE PAIN WAS ACHING. PT WAS GIVEN NORCO FOR PAIN. WILL CONTINUE TO MONITOR.
[2020-10-10] VITALS: BP 112/49
--- NOTE | 2020-10-10 01:15 | NUR ---
RT AT BEDSIDE DOING ROUNDS. PT IS STABLE AT THIS TIME. O2 SAT IS 98% ON TRACH TO VENT. NO RESPIRATORY DISTRESS NOTED. PT WAS REPOSITIONED. G TUBE RESIDUAL IS 10 ML. ORAL CARE WAS PROVIDED. SUCTIONING THROUGH TRACH WAS NOT NEEDED AT THIS TIME. WILL CONTINUE TO MONITOR.
--- NOTE | 2020-10-10 02:43 | NUR ---
PT IS AWAKE IN BED DRAWING ON A PIECE OF PAPER. PT DENIES PAIN. NO COMPLAINTS AT THIS TIME. BREATHING IS UNLABORED ON TRACH TO VENT. O2 SAT IS 99%. PT IS STABLE.
[2020-10-10 04:00] VITALS: BP 109/59
[2020-10-10] MEDS: levETIRAcetam 1,000 MG in NACL 0.9% 100 ML IV SCH ×3 (04:13→22:15)
[2020-10-10] MEDS: PHENYTOIN 100 MG/2 ML VIAL IVP SCH ×3 (04:13→22:15)
--- NOTE | 2020-10-10 04:30 | NUR ---
PT HAD A BM AND WAS CHANGED. BM WAS LIQUID AND BROWN IN COLOR. PT WAS REPOSITIONED. RT NOW AT BEDSIDE TO COMPLETE TRACH CARE. O2 SAT IS 99% ON TRACH TO VENT. NO RESPIRATORY DISTRESS NOTED. G TUBE FEEDING IS INFUSING ORDERED. PT IS STABLE.
[2020-10-10] MEDS: NACL 0.9% 1,000 ML IV SCH ×2 (05:25→18:00)
--- NOTE | 2020-10-10 06:30 | NUR ---
PT IS STABLE. O2 SAT IS 99% ON TRACH TO VENT. NO RESPIRATORY DISTRESS NOTED. SR ON TELE MONITORING. IV FLUIDS ARE INFUSING ORDERED. G TUBE FEEDING IS ALSO INFUSING. G TUBE RESIDUAL IS LESS THAN 5 ML. PT TOLERATING FEEDING WELL. PT DENIES PAIN. WILL MONITOR.
[2020-10-10] MEDS: GLYCOPYRROLATE 1 MG TAB PO SCH ×2 (06:45→16:41)
[2020-10-10] MEDS: PIPERACILLIN/TAZOBACTAM 4.5 GM in DEXTROSE 5% 100 ML IV SCH ×4 (06:45→23:49)
[2020-10-10] MEDS: LEVALBUTEROL 1.25 MG/0.5 ML NEBU INH PRN ×3 (07:00→19:39)
--- NOTE | 2020-10-10 07:01 | NUR ---
RECEIVED ON A [employer]E R860 VENTILATOR PLUGGED INTO RED OUTLET TOLERATING WELL WITHOUT COMPLICATIONS NOTED TO A PORTEX DCT #8 AIRWAY SECURED WITH A JOANNA TRACH TIE CUFF PRESSURE CHECKED NOTED AMBU BAG AT BEDSIDE LOC AWAKE AND ALERT "MOUTHING WORDS - WITH CLIPBOARD/PENCIL WITH NO COMPREHENSIVE WORDS AND/OR FIGURES ON PAPER" GOOD CHEST RISE DEEP TRACHEAL SUCTION FOR MODERATE THICK YELLOW SECRETIONS AIRWAY PATENT
--- NOTE | 2020-10-10 07:40 | NUR ---
ENDORSED PT TO DAY SHIFT NURSE FOR CONTINUITY OF CARE. PT IS STABLE AT THIS TIME. PLAN OF CARE DISCUSSED.
[2020-10-10 08:00] VITALS: BP 102/57
[2020-10-10] MEDS: ESCITALOPRAM 20 MG TAB GT SCH ×2 (08:44→22:16)
[2020-10-10] MEDS: clonazePAM 0.5 MG TAB GT SCH ×3 (08:44→16:41)
[2020-10-10] MEDS: PATIENTS OWN TABLET GT/PO SCH ×6 (08:45→21:00)
[2020-10-10] MEDS: COMMUNICATION ORDER MC SCH ×2 (08:46→21:00)
[2020-10-10] MEDS: MYCOPHENOLATE 250 MG CAP PO SCH ×2 (08:48→22:16)
[2020-10-10] MEDS: PANTOPRAZOLE 40 MG INJ VIAL IVP SCH (08:48)
[2020-10-10] MEDS: LACTOBACILLUS RHAMNOSUS GG 1 EACH CAP PO SCH (08:49)
--- NOTE | 2020-10-10 08:50 | NUR ---
ADMINISTERED SCHEDULED AM MEDICATIONS. ORAL CARE, HYGIENE CARE, AND CHG BATH PROVIDED. PATIENT IS IN NO SIGNS OF DISTRESS OR PAIN. ABLE TO MAKE NEEDS KNOWN. CALL LIGHT WITHIN REACH. WILL CONTINUE TO MONITOR. Addendum: 10/10/20 at 1252 by Alondra Quinones RN RN IGNORE ABOVE NOTE.
--- NOTE | 2020-10-10 08:50 | NUR ---
ADMINISTERED SCHEDULED AM MEDICATIONS. ORAL CARE, HYGIENE CARE, AND CHG BATH PROVIDED. PATIENT IS IN NO SIGNS OF DISTRESS OR PAIN. WILL CONTINUE TO MONITOR.
[2020-10-10 09:24] LABS: BASOPHILS % (AUTO) 0.3 % (0.0-2.0); EOSINOPHILS # (AUTO) 0.5 K/uL (0-0.4); EOSINOPHILS % (AUTO) 3.5 % (0.0-4.0); HEMOGLOBIN 8.8 g/dL (12.0-18.0); LYMPHOCYTES # (AUTO) 1.5 K/uL (2.0-11.5); LYMPHOCYTES % (AUTO) 11.1 % (20.5-51.1); MEAN CORPUSCULAR HEMOGLOBIN 29 pg (27-31); MEAN CORPUSCULAR HGB CONC 33 g/dL (33-37); MEAN CORPUSCULAR VOLUME 89.2 fL (80-94); MONOCYTES % (AUTO) 7.7 % (1.7-9.3); NEUTROPHILS # (AUTO) 10.3 K/uL (1.8-7.7); NEUTROPHILS % (AUTO) 77.4 % (42.2-75.2); PLATELET COUNT (AUTO) 577 K/uL (140-450); RED BLOOD CELL COUNT(AUTO) 3.03 MIL/uL (4.20-6.10); RED CELL DISTRIBUTION WIDTH 14.1 % (11.6-13.7); WHITE BLOOD COUNT (AUTO) 13.3 K/uL (4.8-10.8)
[2020-10-10 10:00] LABS: ALBUMIN 2.1 g/dL (3.4-5.0); ANION GAP 11.7 (8-16); CARBON DIOXIDE 30.4 mmol/L (21-32); CREATININE 0.6 mg/dL (0.6-1.3); POTASSIUM 3.1 mmol/L (3.5-5.1); TOTAL BILIRUBIN 0.2 mg/dL (0.0-1.0)
--- NOTE | 2020-10-10 10:15 | NUR ---
RESTING COMFORTABLY EQUAL CHEST RISE DEEP TRACHEAL SUCTION FOR LARGE SEMI THICK PALE YELLOW SECRETIONS AIRWAY PATENT
--- NOTE | 2020-10-10 10:25 | NUR ---
STABLE RESTING WELL GOOD CHEST RISE AND AERATION THROUGHOUT BILATERAL LUNG CALIXTO AIRWAY PATENT PLACED ON SBT TRIALS X 2 HOURS FIO2 28% PEEP 5cmH20 PS [id number] (MAINTAIN SpVt 6ml/kg = 470ml) CHIPPER OPERATOR TO EVALUATE AFTER 2 HOURS FOR EXTENDED SBT PERIOD WITH PRESSURE TITRATION
--- NOTE | 2020-10-10 10:25 | NUR ---
RT STARTED CPAP TRIAL.
--- NOTE | 2020-10-10 11:30 | NUR ---
PATIENT IS IN NO SIGNS OF DISTRESS OR PAIN. WILL CONTINUE TO MONITOR.
[2020-10-10 12:00] VITALS: BP 101/53
[2020-10-10] MEDS: POTASSIUM CHLORIDE 20% 40 MEQ/15 ML UDC GT PRN (12:16)
--- NOTE | 2020-10-10 12:23 | NUR ---
TOLERATING SBT WELL WITHOUT PULMONARY DISTRESS NOTED EQUAL CHEST RISE NO SUCTIONING AT THIS TIME TAILER IN TO MONITOR
--- NOTE | 2020-10-10 12:25 | NUR ---
TOLERATED SPONTANEOUS BREATHING TRIAL (SBT) X 2 HOURS WITHOUT RESPIRATORY COMPLICATIONS CHANGED MODE TO AC TO REST PATIENT AT THIS TIME RE-EVALUATE AT A LATER TIME FOR FURTHER SBT PERIOD GOOD CHEST RISE DEEP TRACHEAL SUCTION FOR MODERATE SEMI THICK PALE YELLOW SECRETIONS AIRWAY PATENT Addendum: 10/10/20 at 1321 by Heber Dubon RT SUNNY/MEGHA NOTIFIED
--- NOTE | 2020-10-10 12:25 | NUR ---
RT PLACED PATIENT BACK ON VENT, A/C VC FIO2 28, TD 475, RATE 18, PEEP 5. WILL CONTINUE TO MONITOR.
--- NOTE | 2020-10-10 13:55 | NUR ---
PATIENT LEFT AMA. AMA FORMED SIGNED. NOTIFIED. EXPLAINED THE RISK OF AMA. IV REMOVED. PATIENT CONFIRMED HAS ALL BELONGINGS. Addendum: 10/10/20 at 1411 by Alondra Quinones RN RN IGNORE ABOVE NOTE.
--- NOTE | 2020-10-10 15:50 | NUR ---
RT PLACED PATIENT BACK ON CPAP TRIAL. WILL CONTINUE TO MONITOR.
--- NOTE | 2020-10-10 15:50 | NUR ---
RESTING COMFORTABLY NO EVIDENCE OF RESPIRATORY DISTRESS NOTED GOOD CHEST RISE DEEP TRACHEAL SUCTION FOR MODERATE SEMI THICK PALE YELLOW SECRETIONS AIRWAY PATENT PLACED ON CPAP TRIAL NOTED SUNNY/RN NOTIFIED
--- NOTE | 2020-10-10 15:55 | NUR ---
PATIENT IS IN NO SIGNS OF DISTRESS OR PAIN. WILL CONTINUE TO MONITOR.
[2020-10-10 16:00] VITALS: BP 93/48
--- NOTE | 2020-10-10 17:49 | NUR ---
STABLE TOLERATED CPAP TRIAL WITHOUT EVIDENCE OF SOB NOTED EQUAL CHEST RISE DEEP TRACHEAL SUCTION FOR MODERATE SEMI THICK PALE YELLOW SECRETIONS AIRWAY PATENT
[2020-10-10] MEDS ORDERED: MORPHINE SULFATE 2 MG/ML SYR IVP PRN (18:50)
--- NOTE | 2020-10-10 19:09 | NUR ---
ENDORSED CARE TO BUBBA [place] FOR CONTINUITY OF CARE.
--- NOTE | 2020-10-10 19:15 | NUR ---
RECEIVED BEDSIDE REPORT FROM DAY SHIFT NURSE FOR CONTINUITY OF CARE. PT IS AWAKE, NODDING TO QUESTIONS APPROPRIATELY AND TRYING TO MOUTH RESPONSES. ON TRACH TO VENT WITH O2 SAT AT 98%. BREATHING IS UNLABORED. SR ON TELE MONITORING. G TUBE IN PLACE INFUSING FEEDING ORDERED. PT IS INCONTINENT WITH DIAPER IN PLACE. SKIN IS WARM, DRY, AND INTACT. IV IS IN THE LEFT WRIST 22 GAUGE RUNNING NS AT 80 ML PER HOUR PER ORDER. PT IS STABLE AT THIS TIME. PLAN OF CARE DISCUSSED.
[2020-10-10 20:00] VITALS: BP 90/41
--- NOTE | 2020-10-10 21:30 | NUR ---
ORAL CARE PROVIDED. PT WAS SUCTIONED ORALLY REQUESTED. PT WAS REPOSITIONED AND CHANGED. PT VOIDED IN DIAPER CLEAR, YELLOW URINE. G TUBE FEEDING IS INFUSING. G TUBE RESIDUAL IS 15 ML. TRACH TO VENT WITH O2 SAT AT 98%. PT IS STABLE.
--- NOTE | 2020-10-10 21:33 | NUR ---
US TECH AT BEDSIDE FOR EXAM.
--- NOTE | 2020-10-10 23:55 | NUR ---
PT MOUTHED THAT HE HAD PAIN IN HIS FEET AT A SCALE OF 7/10. PT USED NODDING AND HANDS TO EXPRESS LEVEL OF PAIN. FEET WERE ELEVATED FURTHER WITH MORE PILLOWS. PT WAS GIVEN MORPHINE FOR PAIN ORDERED IVP. BP WAS 106/65 PRIOR TO ADMINISTRATION OF MEDICATION. MEDICATION EDUCATION WAS PROVIDED AND PT NODDED TO SHOW UNDERSTANDING OF TEACHING.
[2020-10-11] VITALS: BP 103/54
--- NOTE | 2020-10-11 01:36 | NUR ---
PT IS SLEEPING. NO PAIN OR DISTRESS NOTED. BREATHING IS UNLABORED ON TRACH TO VENT. O2 SAT IS 97%. BLANKET WAS PROVIDED FOR COMFORT. LOWER EXTREMITIES WERE ELEVATED WITH PILLOWS. IV FLUIDS ARE INFUSING ORDERED. WILL CONTINUE TO MONITOR.
--- NOTE | 2020-10-11 03:30 | NUR ---
PT WAS CHANGED AND REPOSITIONED. PT TOLERATED THIS WELL. PILLOWS PLACED UNDERNEATH BONY REGIONS TO OFFSET PRESSURE. IV FLUIDS ARE INFUSED. G TUBE FEEDING IS INFUSING. PT IS STABLE.
[2020-10-11 04:00] VITALS: BP 109/65
--- NOTE | 2020-10-11 05:30 | NUR ---
REPOSITIONED PT. PT DENIES ANY PAIN AT THIS TIME. NO RESPIRATORY DISTRESS NOTED ON TRACH TO VENT. O2 SAT IS 94%. ORAL SUCTIONING WAS PROVIDED AND MODERATE AMOUNT OF CREAMY, WHITE SECRETIONS EXPELLED. PT STABLE, WILL CONTINUE TO MONITOR.
[2020-10-11] MEDS: levETIRAcetam 1,000 MG in NACL 0.9% 100 ML IV SCH ×3 (05:54→22:04)
[2020-10-11] MEDS: PHENYTOIN 100 MG/2 ML VIAL IVP SCH ×3 (05:54→22:04)
[2020-10-11] MEDS: NACL 0.9% 1,000 ML IV SCH ×2 (06:46→18:16)
[2020-10-11] MEDS: GLYCOPYRROLATE 1 MG TAB PO SCH ×2 (06:46→17:16)
[2020-10-11] MEDS: PIPERACILLIN/TAZOBACTAM 4.5 GM in DEXTROSE 5% 100 ML IV SCH ×3 (06:46→18:15)
--- NOTE | 2020-10-11 07:02 | NUR ---
RECEIVED BEDSIDE REPORT FROM BANQUET CAPTAIN NURSE BUBBA RN, PT RESTING, NO DISTRESS NOTED, PT TRACH TO VENT ACVC FIO2 28%, RATE 18, PEEP 5, SATURATING @ 95%, NO SOB NOTED, PT ABLE TO LET NEEDS KNOWN, IV TO LEFT WRIST 22G PATENT INTACT, INFUSING NS @ 80ML/HR, INFUSING WELL. INITIAL ASSESSMENT DONE, ALL SAFETY PRECAUTION MET, CALL LIGHT WITHIN REACH, WILL CONTINUE TO MONITOR.
--- NOTE | 2020-10-11 07:10 | NUR ---
ENDORSED PT TO DAY SHIFT NURSE FOR CONTINUITY OF CARE. O2 SAT IS 99% ON TRACH TO VENT. PT IS STABLE AT THIS TIME. PLAN OF CARE DISCUSSED.
[2020-10-11 08:00] VITALS: BP 101/57
[2020-10-11] MEDS: PATIENTS OWN TABLET GT/PO SCH ×7 (08:39→22:01)
[2020-10-11] MEDS: LACTOBACILLUS RHAMNOSUS GG 1 EACH CAP PO SCH (08:41)
[2020-10-11] MEDS: MYCOPHENOLATE 250 MG CAP PO SCH ×2 (08:42→22:03)
[2020-10-11] MEDS: clonazePAM 0.5 MG TAB GT SCH ×3 (08:43→17:16)
[2020-10-11] MEDS: ESCITALOPRAM 20 MG TAB GT SCH ×2 (08:43→22:03)
[2020-10-11] MEDS: COMMUNICATION ORDER MC SCH ×2 (08:43→22:01)
[2020-10-11] MEDS: PANTOPRAZOLE 40 MG INJ VIAL IVP SCH (08:43)
--- NOTE | 2020-10-11 08:43 | NUR ---
DUE MEDICATIONS GIVEN, PT TOLERATED WELL, WILL CONTINUE TO MONITOR.
[2020-10-11] MEDS ORDERED: CYCLOBENZAPRINE 10 MG TAB PO PRN (10:30)
--- NOTE | 2020-10-11 11:20 | NUR ---
STARTED SBT TRIAL ON CPAP 5 PS 12, TOLERATING WELL. RN NOTIFIED.
[2020-10-11 12:00] VITALS: BP 98/49
--- NOTE | 2020-10-11 12:36 | NUR ---
IV TO LEFT WRIST 22G INFILTRATED, TAKEN OUT, CATH INTACT. NEW IV INSERTED TO RIGHT FA 22G, PATENT INTACT.
--- NOTE | 2020-10-11 13:09 | NUR ---
DUE MEDICATIONS ADMINISTERED, PT TOLERATED WELL, WILL CONTINUE TO MONITOR
--- NOTE | 2020-10-11 15:45 | NUR ---
DURING VENT CHECK, PT ASKED TO TAKE A BREAK FROM SBT TRIAL. PT LASTED 4 HOURS ON CPAP AND PS WAS TITRATED TO 10. RSBI 46, NIF _19 Addendum: 10/11/20 at 1602 by Nicole Arora RT NIF -19, AND VC 1231. TOLERATED WELL, PLACED BACK ON AC MODE WITH NO ISSUES.
[2020-10-11 16:00] VITALS: BP 99/48
--- NOTE | 2020-10-11 16:55 | NUR ---
CHANGED FEEDING TUBE, PT TOLERATING FEEDING WELL. WILL CONTINUE TO MONITOR.
--- NOTE | 2020-10-11 17:16 | NUR ---
DUE MEDICATIONS ADMINISTERED, PT TOLERATED WELL, WILL CONTINUE TO MONITOR
--- NOTE | 2020-10-11 19:24 | NUR ---
ENDORSED PT TO CUE WORKER NURSE FOR CONTINUOUS OF CARE.
[2020-10-11 20:00] VITALS: BP 94/49
--- NOTE | 2020-10-11 20:00 | NUR ---
RECEIVED BEDSIDE REPORT FROM DAY RN FOR CONTINUITY OF CARE. PATIENT A/A/OX2, LAYING IN BED JUST WATCHING TV. PATIENT NOT IN ANY DISTRESS AND NO COMPLAIN AT THIS TIME. IVF INFUSING ORDERED. ON TRACH TO VENT SETTING, SATING 96% SINUS RHYTHM ON FOOD SCIENTIST, HR-83. DISCUSSED POC WITH THE PATIENT AND VERBALIZED UNDERSTANDING. CALL LIGHT WITHIN REACH. ISOLATION AND FALL PRECAUTION IMPLEMENTED. BED IN LOW POSITION, SIDE RAILS UP AND BED ALARM ON.WILL CONTINUE POC AND MONITORING.
--- NOTE | 2020-10-11 22:00 | NUR ---
ADMINISTERED ALL THE SCHEDULED MEDICATIONS ORDERED THROUGH THE G TUBE. PATIENT TOLERATED IT WELL . NO ADVERSE DRUG REACTION NOTED AND NO COMPLAIN FROM THE PATIENT. WILL CONTINUE TO OBSERVE.
[2020-10-12] VITALS: BP 93/50
--- NOTE | 2020-10-12 | NUR ---
REPOSITIONED PATIENT TO PREVENT SKIN BREAKDOWN. HOB ELEVATED. PT NOT IN ANY DISTRESS. SAFETY MEASURES IN PLACED.
[2020-10-12] MEDS: PIPERACILLIN/TAZOBACTAM 4.5 GM in DEXTROSE 5% 100 ML IV SCH ×4 (00:25→17:44)
[2020-10-12] MEDS: NACL 0.9% 1,000 ML IV SCH ×2 (00:26→16:22)
--- NOTE | 2020-10-12 02:00 | NUR ---
PATIENT ASLEEP AT THIS TIME. VISIBLE SYMMETRICAL CHEST RISE AND FALL NOTED. NOT IN ANY DISTRESS. SAFETY MEASURES IN PLACED. WILL CONTINUE TO OBSERVE.
[2020-10-12 04:00] VITALS: BP 94/49
--- NOTE | 2020-10-12 04:00 | NUR ---
PATIENT VITAL SIGNS STABLE, AFEBRILE, SATING 99% ON TRACH TO VENT SETTING. NOT IN ANY DISTRESS. NO COMPLAIN AT THIS TIME. SINUS RHYTHM ON LEAD MILITARY ANALYST, HR-82. SAFETY MEASURES IN PLACED.
[2020-10-12] MEDS: PHENYTOIN 100 MG/2 ML VIAL IVP SCH ×3 (05:25→21:35)
[2020-10-12] MEDS: levETIRAcetam 1,000 MG in NACL 0.9% 100 ML IV SCH ×3 (05:25→21:34)
--- NOTE | 2020-10-12 06:31 | NUR ---
PATIENT STABLE. NO ACUTE EVENTS THROUGHOUT THE NIGHT. NOT IN ANY DISTRESS. NO COMPLAIN AT THIS TIME. CALL LIGHT WITHIN REACH. WILL ENDORSE THE PATIENT TO THE ONCOMING RN FOR CONTINUITY OF CARE.
--- NOTE | 2020-10-12 07:35 | NUR ---
RECEIVED BEDSIDE REPORT FROM SCHOOL AIDE NURSE. PATIENT IS SLEEPING RESPIRATION EVEN UNLABORED ON TRACH TO VENT. NO DISTRESS NOTED. SKIN IS WARM AND DRY, IV PATENT AND INTACT. PLAN OF CARE UPDATED. G-TUBE FEEDING NOTED. ALL SAFETY MEASURES IN PLACE. CALL LIGHT WITHIN REACH. WILL CONTINUE TO MONITOR.
[2020-10-12 08:00] VITALS: BP 98/45
[2020-10-12] MEDS ORDERED: Z-GUARD PASTE TP PRN (08:00)
[2020-10-12] MEDS: LACTOBACILLUS RHAMNOSUS GG 1 EACH CAP PO SCH (08:53)
[2020-10-12] MEDS: ESCITALOPRAM 20 MG TAB GT SCH ×2 (08:53→21:34)
[2020-10-12] MEDS: GLYCOPYRROLATE 1 MG TAB PO SCH ×2 (08:53→16:20)
[2020-10-12] MEDS: MYCOPHENOLATE 250 MG CAP PO SCH ×2 (08:54→21:33)
[2020-10-12] MEDS: PATIENTS OWN TABLET GT/PO SCH ×6 (08:55→21:36)
[2020-10-12] MEDS: PANTOPRAZOLE 40 MG INJ VIAL IVP SCH (08:55)
[2020-10-12] MEDS: clonazePAM 0.5 MG TAB GT SCH ×3 (08:57→16:20)
[2020-10-12] MEDS: COMMUNICATION ORDER MC SCH ×2 (09:00→21:00)
--- NOTE | 2020-10-12 09:00 | NUR ---
STARTED SBT TRIAL ON CPAP 5 PS 8. TOLERATING WELL, RN NOTIFIED.
--- NOTE | 2020-10-12 09:30 | NUR ---
ALL SCHEDULED MEDS WERE GIVEN PER ORDER. NO ASE NOTED. WILL CONTINUE TO MONITOR.
[2020-10-12 12:00] VITALS: BP 94/50
--- NOTE | 2020-10-12 12:50 | NUR ---
PT TOLERATED SBT TRIAL WELL AND FOLLOW UP ABG WAS WITHIN THE NORMAL RANGES. TOOK PT OFF THE VENT AND PLACED ON TBAR TRIAL 28% PER BARBRA BURROUGHS WILL CONTINUE TO MONITOR CLOSELY. Addendum: 10/12/20 at 1521 by Nicole Arora RT PER DR BELLE'S PLAN OF CARE
--- NOTE | 2020-10-12 13:00 | NUR ---
RT AT BEDSIDE. PATIENT IS NOW ON TRACH TO T-BAR TOLERATING IT WELL SATING AT 99% WITH NO DISTRESS
--- NOTE | 2020-10-12 15:34 | NUR ---
PROVIDED ORAL CARE
[2020-10-12 16:00] VITALS: BP 98/47
--- NOTE | 2020-10-12 16:50 | NUR ---
TBAR TRIAL ENDED, NO RESPIRATORY DISTRESS NOTED. TOLERATED WELL FOR FOUR HOURS, PLACED BACK ON THE VENT ON AC MODE TO REST. RN NOTIFIED. Addendum: 10/12/20 at 1709 by Nicole Arora RT COPIOUS, THICK, PALE YELLOW SECRETIONS NOTED DURING TBAR TRIAL.
--- NOTE | 2020-10-12 17:00 | NUR ---
RAT AT BEDSIDE PLACED PATIENT BACK TO VENT. NO DISTRESS NOTED
[2020-10-12] MEDS: POTASSIUM CHLORIDE 20% 40 MEQ/15 ML UDC GT PRN (18:33)
--- NOTE | 2020-10-12 18:45 | NUR ---
PT K IS 3.1 PRN POTASSIUM CHLORIDE 40MEQ GIVEN PER ODER WILL CONTINUE TO MONITOR
--- NOTE | 2020-10-12 20:00 | NUR ---
RECEIVED PATIENT REPORT. PATIENT ASLEEP BUT EASILY AROUSABLE. PT TRACH TO VENT WITH SETTINGS 24% FIO2 RATE 18, VT 475, PEEP OF 5. PT ON CONTINUOUS PULSE OX MONITORING. O2 SAT 94% AT THIS TIME. NO S/S OF DISTRESS NOTED. PATIENT ABLE TO FOLLOW COMMANDS AND MOUTH WORDS. PEG IN PLACE WITH TF FEEDING RUNNING. 30CC RESIDUALS NOTED. PT ON TELE MONITORING. BED LOWERED WITH CALL LIGHT WITHIN REACH. WILL CONTINUE TO MONITOR
[2020-10-12 20:03] VITALS: BP 93/49
--- NOTE | 2020-10-12 21:00 | NUR ---
PATIENT HAD BM. STOOL LOOSE, BROWN AND MODERATE IN AMOUNT. PATIENT CLEANED AND REPOSITIONED FOR COMFORT. PT TOLERATED WELL
--- NOTE | 2020-10-12 21:35 | NUR ---
ADMINISTERED DUE MEDS. PT TOLERATED WELL
[2020-10-13] VITALS (7 sets, daily range): BP systolic 91–101; BP diastolic 44–56
[2020-10-13] MEDS: PIPERACILLIN/TAZOBACTAM 4.5 GM in DEXTROSE 5% 100 ML IV SCH ×3 (00:24→11:58)
--- NOTE | 2020-10-13 04:20 | NUR ---
ORAL CARE DONE. PT TURNED AND REPOSITIONED FOR COMFORT
[2020-10-13] MEDS: PHENYTOIN 100 MG/2 ML VIAL IVP SCH ×2 (05:28→12:54)
[2020-10-13] MEDS: levETIRAcetam 1,000 MG in NACL 0.9% 100 ML IV SCH ×2 (05:32→12:54)
[2020-10-13] MEDS: NACL 0.9% 1,000 ML IV SCH (06:35)
[2020-10-13] MEDS: GLYCOPYRROLATE 1 MG TAB PO SCH (06:35)
[2020-10-13 06:48] LABS: BASOPHILS # (AUTO) 0.1 K/uL (0.00-0.22); BASOPHILS % (AUTO) 0.5 % (0.0-2.0); EOSINOPHILS # (AUTO) 0.5 K/uL (0-0.4); EOSINOPHILS % (AUTO) 4.2 % (0.0-4.0); HEMATOCRIT 29.4 % (36-52); HEMOGLOBIN 9.5 g/dL (12.0-18.0); LYMPHOCYTES # (AUTO) 1.5 K/uL (2.0-11.5); LYMPHOCYTES % (AUTO) 14.2 % (20.5-51.1); MEAN CORPUSCULAR HEMOGLOBIN 29 pg (27-31); MEAN CORPUSCULAR HGB CONC 32 g/dL (33-37); MEAN CORPUSCULAR VOLUME 89.4 fL (80-94); MONOCYTES # (AUTO) 0.9 K/uL (0.8-1.0); MONOCYTES % (AUTO) 8.4 % (1.7-9.3); NEUTROPHILS # (AUTO) 7.8 K/uL (1.8-7.7); NEUTROPHILS % (AUTO) 72.7 % (42.2-75.2); PLATELET COUNT (AUTO) 637 K/uL (140-450); RED BLOOD CELL COUNT(AUTO) 3.28 MIL/uL (4.20-6.10); WHITE BLOOD COUNT (AUTO) 10.7 K/uL (4.8-10.8)
[2020-10-13 07:00] LABS: ANION GAP 9.9 (8-16); CREATININE 0.6 mg/dL (0.6-1.3); POTASSIUM 3.9 mmol/L (3.5-5.1)
[2020-10-13] MEDS: LEVALBUTEROL 1.25 MG/0.5 ML NEBU INH PRN ×2 (07:02→11:28)
--- NOTE | 2020-10-13 07:02 | NUR ---
RECEIVED ON A [employer] R860 VENTILATOR PLUGGED INTO RED OUTLET TOLERATING WELL WITHOUT COMPLICATIONS NOTED TO A PORTEX DCT #8 AIRWAY SECURED WITH JOANNA TRACH TIE CUFF PRESSURE CHECKED NOTED AMBU BAG AT BEDSIDE LOC AWAKE AND ALERT RESPONSIVE EQUAL CHEST RISE DEEP TRACHEAL SUCTION FOR LARGE SEMI THICK PALE YELLOE SECRETIONS AIRWAY PATENT
--- NOTE | 2020-10-13 07:30 | NUR ---
RECEIVED PATIENT FROM EMISSIONS TESTING AND REPAIR TECHNICIAN NURSE. TRACH TO VENT. AC/VC FIO2 28% TV 475 R 18 PEEP 5. AOX3, ABLE TO MAKE NEEDS KNOWN VIA NODDING/GESTURES. NO C/O PAIN AT THIS TIME, RESPIRATIONS EVEN AND UNLABORED, SKIN WARM AND DRY. WITH COPIOUS TRACH SECRETIONS. IV SITE LEFT WRIST 24G INFUSING IVF. GT INTACT AND PATENT CONNECTED TO TUBE FEEDING. SKIN INTACT. ABDOMEN SOFT, NONTENDER. CALL LIGHT WITHIN REACH. WILL CONTINUE TO MONITOR
--- NOTE | 2020-10-13 07:40 | NUR ---
PT REPORT GIVEN TO AM NURSE. PT ENDORSED IN STABLE CONDITION
[2020-10-13] MEDS: ESCITALOPRAM 20 MG TAB GT SCH (08:33)
[2020-10-13] MEDS: PANTOPRAZOLE 40 MG INJ VIAL IVP SCH (08:33)
[2020-10-13] MEDS: PATIENTS OWN TABLET GT/PO SCH ×4 (08:33→09:47)
[2020-10-13] MEDS: LACTOBACILLUS RHAMNOSUS GG 1 EACH CAP PO SCH (08:34)
[2020-10-13] MEDS: MYCOPHENOLATE 250 MG CAP PO SCH (08:34)
[2020-10-13] MEDS: clonazePAM 0.5 MG TAB GT SCH ×2 (08:34→12:54)
[2020-10-13] MEDS: COMMUNICATION ORDER MC SCH (08:34)
--- NOTE | 2020-10-13 09:15 | NUR ---
DUE MORNING MEDS GIVEN VIA GT. TOLERATED WELL. ORAL CARE DONE.
--- NOTE | 2020-10-13 09:40 | NUR ---
STABLE GOOD CHEST RISE DEEP TRACHEAL SUCTION FOR COPIOUS THIN YELLOW SECRETIONS OROPHARYNGEAL SUCTION FOR COPIOUS THICK YELLOW/HAZY/FROTHY SECRETIONS AIRWAY PATENT PLACED ON CPAP MODE NOTED AURELIO/RN NOTIFIED
[2020-10-13] MEDS ORDERED: ZOS4.5PM IV (10:15)
[2020-10-13] MEDS ORDERED: BRIV100T GT (10:18)
--- NOTE | 2020-10-13 10:30 | NUR ---
CHANGED AND REPOSITIONED PT. WITH MODERATE BM
--- NOTE | 2020-10-13 11:09 | NUR ---
VOICEMAIL MESSAGE LEFT TO [place] AT [facility], AWAITING FOR CALL BACK.
--- NOTE | 2020-10-13 11:29 | NUR ---
PRIOR TO MODE CHANGE TO WHILE ON CPAP PEEP 5cmH20 PRESSURE SUPPORT [id number] FIO2 21%PATIENT PRESENTING WITH INCREASED WOB AT 30 BPM DECREASED SpVt 382ml DECREASED SATURATION TO 85% BREATH SOUNDS COARSE RALES BILATERAL DEEP TRACHEAL SUCTION FOR COPIOUS FROTHY SECRETIONS AIRWAY NOW PATENT AURELIO/RN NOTIFIED OF MODE CHANGE Addendum: 10/13/20 at 1155 by Heber Dubon RT INCREASED FIO2 TO 28% TO KEEP SATURATION GREATER THAN 90%
--- NOTE | 2020-10-13 11:44 | NUR ---
POST [facility]N THERAPY ATTEMPTED CPAP TRIAL PATIENT UNABLE TO GENERATE SUBSTANTIAL SpVt CONTINUED ON AC MODE
--- NOTE | 2020-10-13 12:40 | NUR ---
TALKED TO JOSE IN [place], WILL RECEIVED PT , CAN GIVE REPORT IN AN 1 HR
--- NOTE | 2020-10-13 13:23 | NUR ---
RESTING WELL GOOD CHEST AND AERATION THROUGHOUT BILATERAL LUNG [place] AIRWAY PATENT PLACED ON CPAP NOTED AURELIO/RN
--- NOTE | 2020-10-13 13:34 | NUR ---
PATIENT VITAL SIGNS STABLE, AFEBRILE, SATING 99% ON CPAP. NOT IN ANY DISTRESS. NO COMPLAINTS AT THIS TIME.
--- NOTE | 2020-10-13 13:55 | NUR ---
REPORT GIVE TO CHRISTOPHER C[place] IN [facility]
--- NOTE | 2020-10-13 14:50 | NUR ---
DISCHARGED FOR FACILITY PATIENT REMOVED FOR VENTILATOR BY [facility]
--- NOTE | 2020-10-13 15:37 | NUR ---
@3557 HRS: CONTACTED [facility], SPOKE WITH [place]. ETA FOR [facility] WILL BE IN 45 MINS. CMN FORM FAXED TO [facility], CONFIRMATION RECEIVED.
== END 2020-10-13 15:00 | DRG 720 ==
LOC: MED 18:35 → MTU 21:42
PROVIDERS: ADMIT Family Medicine; ATTEND Family Medicine
PROC: 5A1955Z Respiratory Ventilation, Greater than 96 Consecutive Hours (ICD-10-PCS; principal; 2020-10-07)
PROC: 0B21XFZ Change Tracheostomy Device in Trachea, External Approach (ICD-10-PCS; 2020-10-07)
DX: A41.9 Sepsis, unspecified organism (principal); J96.20 Acute and chronic respiratory failure, unspecified whether with hypoxia or hypercapnia; E43 Unspecified severe protein-calorie malnutrition; J69.0 Pneumonitis due to inhalation of food and vomit; J15.1 Pneumonia due to Pseudomonas; Z93.0 Tracheostomy status; R13.10 Dysphagia, unspecified; E87.6 Hypokalemia; F32.9 Major depressive disorder, single episode, unspecified; G40.909 Epilepsy, unspecified, not intractable, without status epilepticus; J84.10 Pulmonary fibrosis, unspecified; D64.9 Anemia, unspecified; E78.2 Mixed hyperlipidemia; M34.9 Systemic sclerosis, unspecified; Z20.822 Contact with and (suspected) exposure to COVID-19; Z86.16 Personal history of COVID-19; Z79.899 Other long term (current) drug therapy; Z93.1 Gastrostomy status; Z68.21 Body mass index [BMI] 21.0-21.9, adult
CPT/HCPCS: 36415; 36600; 71045; 80048; 80053; 81003; 82150; 82803; 83036; 83605; 83690; 83735; 83880; 84100; 84436; 84439; 84443; 84479; 84484; 85025; 85610; 85730; 87040; 87070; 87081; 87086; 87205; 87804; 92610; 93005; 93925; 93970; 94003; 94640; 96365; 99285; C1758; C9113; J1165; J1953; J1956; J2060; J2270; J2543; J7030; J7060; J7517; J7612; U0003